=== PATIENT | male | born 1995 | race Two or more races ===

== ENCOUNTER 2019-01-03 19:58 | Inpatient (IN) | payer MEDICAID ==
[~2019-01-03] VITALS: Ht 182.9 cm; Wt 70.1 kg
--- NOTE | 2019-01-03 20:00 | Emergency Room Report ---
History of Present Illness General Chief Complaint: Overdose Present Illness HPI 23-year-old male Nestor Jade, presents with AMS, patient was seen running around the street, he was given Versed per EMS, patient is refusing to answer questions. Patient has no complaints at this time and will not give his name. Patient did endorse using illegal substances Allergies: Coded Allergies: UNABLE TO ASSESS (Unverified , 01/03/19) Patient History Limited by: medical condition - Patient currently intoxicated by some drug Past Medical History: see triage record Social History: Reports: drug use Reviewed Nursing Documentation: PMH: Agreed; PSxH: Agreed Review of Systems All Other Systems: limited - Altered mental status Physical Exam Vital Signs Date Time Temp Pulse Resp B/P (MAP) Pulse Ox O2 Delivery O2 Flow Rate FiO2 01/03/19 19:52 85 16 157/94 (115) 95 Room Air Sp02 EP Interpretation: reviewed, normal General Appearance: no apparent distress, non-toxic Head: normocephalic, atraumatic Eyes: bilateral eye PERRL, bilateral eye EOMI ENT: uvula midline, moist mucus membranes Neck: supple, thyroid normal, supple/symm/no masses Respiratory: lungs clear, no respiratory distress, no retraction, no accessory muscle use Cardiovascular #1: normal peripheral pulses, regular rate, rhythm, no edema, no gallop, no murmur Gastrointestinal: non tender, soft, no guarding, no rebound Musculoskeletal: normal inspection Neurologic: other - Sleeping comfortably in bed Psychiatric: mood/affect normal Skin: no rash, warm/dry Medical Decision Making Diagnostic Impression: Primary Impression: Drug overdose ER Course 23-year-old male presents with acute drug intoxication, unknown substance, patient is uncooperative at this moment Patient was transitioned to Dr. Turcios 9:21pm Laboratory Tests Test 01/03/19 20:10 White Blood Count 7.2 K/UL (4.8-10.8) Red Blood Count 4.27 M/UL (4.70-6.10) L Hemoglobin 12.6 G/DL (14.2-18.0) L Hematocrit 36.7 % (42.0-52.0) L Mean Corpuscular Volume 86 FL (80-99) Mean Corpuscular Hemoglobin 29.5 PG (27.0-31.0) Mean Corpuscular Hemoglobin Concent 34.3 G/DL (32.0-36.0) Red Cell Distribution Width 11.6 % (11.6-14.8) Platelet Count 219 K/UL (150-450) Mean Platelet Volume 6.1 FL (6.5-10.1) L Neutrophils (%) (Auto) 67.7 % (45.0-75.0) Lymphocytes (%) (Auto) 21.9 % (20.0-45.0) Monocytes (%) (Auto) 8.3 % (1.0-10.0) Eosinophils (%) (Auto) 0.8 % (0.0-3.0) Basophils (%) (Auto) 1.2 % (0.0-2.0) Sodium Level 144 MMOL/L (136-145) Potassium Level 3.1 MMOL/L (3.5-5.1) L Chloride Level 107 MMOL/L (98-107) Carbon Dioxide Level 27 MMOL/L (21-32) Anion Gap 10 mmol/L (5-15) Blood Urea Nitrogen 20 mg/dL (7-18) H Creatinine 1.2 MG/DL (0.55-1.30) Estimate Glomerular Filtration Rate > 60 mL/min (>60) Glucose Level 155 MG/DL (74-106) H Calcium Level 9.0 MG/DL (8.5-10.1) Total Bilirubin 1.2 MG/DL (0.2-1.0) H Direct Bilirubin 0.4 MG/DL (0.0-0.3) H Aspartate Amino Transferase (AST) 236 U/L (15-37) H Alanine Aminotransferase (ALT) 357 U/L (12-78) H Alkaline Phosphatase 103 U/L (46-116) Total Creatine Kinase 936 U/L (26-308) H Total Protein 6.6 G/DL (6.4-8.2) Albumin 3.6 G/DL (3.4-5.0) Globulin 3.0 g/dL Albumin/Globulin Ratio 1.2 (1.0-2.7) Salicylates Level 0.2 ug/mL (2.8-20) L Acetaminophen Level < 2 MCG/ML (10-30) L Serum Alcohol < 3 mg/dL EKG Diagnostic Results EKG Time: 20:01 EP Interpretation: NSR, rate 84, QTc 491, no acute ST elevations, normal axis Rate: normal Rhythm: NSR ST Segments: no acute changes Chest X-Ray Diagnostic Results Chest X-Ray Diagnostic Results : Chest X-Ray Ordered: Yes # of Views/Limited/Complete: 1 View Last Vital Signs Date Time Temp Pulse Resp B/P (MAP) Pulse Ox O2 Delivery O2 Flow Rate FiO2 01/03/19 19:52 85 16 157/94 (115) 95 Room Air Condition: Stable Signed Out To: Sanjeev Rubio M.D. Jan 03, 2019 20:00
[2019-01-03 20:15] VITALS: BP 145/87
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
[2019-01-03 20:37] LABS: BASOPHILS % (AUTO) 1.2 % (0.0-2.0); EOSINOPHILS % (AUTO) 0.8 % (0.0-3.0); HEMATOCRIT 36.7 % (42.0-52.0); HEMOGLOBIN 12.6 G/DL (14.2-18.0); LYMPHOCYTES % (AUTO) 21.9 % (20.0-45.0); MEAN CORPUSCULAR VOLUME 86 FL (80-99); MONOCYTES % (AUTO) 8.3 % (1.0-10.0); NEUTROPHILS % (AUTO) 67.7 % (45.0-75.0); PLATELET COUNT 219 K/UL (150-450); RED BLOOD COUNT 4.27 M/UL (4.70-6.10); RED CELL DISTRIBUTION WIDTH 11.6 % (11.6-14.8); WHITE BLOOD COUNT 7.2 K/UL (4.8-10.8)
[2019-01-03 20:56] LABS: ANION GAP 10 mmol/L (5-15); BLOOD UREA NITROGEN 20 mg/dL (7-18); CARBON DIOXIDE 27 MMOL/L (21-32); CHLORIDE 107 MMOL/L (98-107); CREATININE 1.2 MG/DL (0.55-1.30); POTASSIUM 3.1 MMOL/L (3.5-5.1); SODIUM 144 MMOL/L (136-145)
[2019-01-03 21:00] LABS: ALANINE AMINOTRANSFERASE 357 U/L (12-78); ALBUMIN 3.6 G/DL (3.4-5.0); ALBUMIN/GLOBULIN RATIO 1.2 (1.0-2.7); ALKALINE PHOSPHATASE 103 U/L (46-116); ASPARTATE AMINO TRANSFERASE 236 U/L (15-37); BILIRUBIN,DIRECT 0.4 MG/DL (0.0-0.3); BILIRUBIN,TOTAL 1.2 MG/DL (0.2-1.0); CREATINE KINASE 936 U/L (26-308)
--- NOTE | 2019-01-03 21:25 | NUR ---
ED Nurse Note: [place] and juice provided.
[2019-01-03] MEDS ORDERED: LORazepam Inj 2mg/ml 1ml IV ONE (21:30)
[2019-01-03 21:51] LABS: APPEARANCE,URINE SLIGHTLY CLOUDY; BILIRUBIN, URINE NEGATIVE (NEGATIVE); COLOR,URINE BROWN; GLUCOSE, URINE (UA) NEGATIVE (NEGATIVE); KETONES,URINE 1+ (NEGATIVE); LEUKOCYTE ESTERASE ,URINE 1+ (NEGATIVE); NITRITE,URINE NEGATIVE (NEGATIVE); PH,URINE 5 (4.5-8.0); PROTEIN,URINE 1+ (NEGATIVE); UROBILINOGEN,URINE 8 MG/DL (0.0-1.0)
[2019-01-03 22:15] VITALS: BP 145/87
--- NOTE | 2019-01-03 22:40 | NUR ---
ED Nurse Note: [place] and juice provided.
--- NOTE | 2019-01-04 00:05 | NUR ---
ED Nurse Note: Patient was medicated, sleeping, VSS at this time, no acute disstress noticed.
[2019-01-04 00:15] VITALS: BP 140/80
[2019-01-04] MEDS ORDERED: ZYPREXA5 MG ORAL (02:16)
[2019-01-04 02:50] VITALS: BP 134/84
--- NOTE | 2019-01-04 02:50 | NUR ---
ER Nurse Note: Pt asleep, no signs of distress. Denies pain, no SOB, no n/v. Pt calm, cooperative. Chest rise and fall noted. Pending SW in AM. All safety measures met; will continue to montior.
[2019-01-04 04:35] VITALS: BP 119/70
[2019-01-04 06:58] VITALS: BP 122/72
--- NOTE | 2019-01-04 07:06 | NUR ---
ER Nurse Note: Endorsed to ALONSO Anderson for continuity of care.
--- NOTE | 2019-01-04 07:07 | NUR ---
ED Nurse Note: Received patient from Claudia GUPTA. patient is resting comfortably in bed.
--- NOTE | 2019-01-04 08:10 | NUR ---
ED Nurse Note: breakfast provided to the patient. Annabel Document Review Specialist by the bedside.
--- NOTE | 2019-01-04 08:36 | Diagnostic Imaging Report ---
Indications: Altered mental status Technique: Spiral acquisitions obtained through the brain. Angled axial and coronal 5 x 5 mm slices were reconstructed. Total dose length product 1446.08 mGycm. CTDI vol(s) 70.38 mGy. Dose reduction achieved using automated exposure control Comparison: None. Findings: No acute intracranial hemorrhage or edema, mass effect, nor midline shift. Normal hairston-white differentiation. Normal-sized ventricles and extra-axial CSF spaces. Visualized orbits and sinuses are unremarkable. The mastoids are clear. The calvarium is intact Impression: Negative The CT scanner at [facility] is accredited by the [employer] and the scans are performed using protocols designed to limit radiation exposure to as low as reasonably achievable to attain images of sufficient resolution adequate for diagnostic evaluation.
[2019-01-04] MEDS: Heparin 5000 units/ml inj SUBQ SCH ×2 (09:00→20:49)
--- NOTE | 2019-01-04 09:09 | NUR ---
ED Nurse Note: orders from Dr. Mcleod not carried, patient is not on the floor, pt is in ED
--- NOTE | 2019-01-04 09:30 | NUR ---
ED Nurse Note: patient provided with additional sandwich, 2 juices, 1 pitcher of ice water as requested per patient
--- NOTE | 2019-01-04 10:20 | Diagnostic Imaging Report ---
Indication: Cough Technique: One view of the chest Comparison: none Findings: Lungs and pleural spaces are clear. Heart size is normal Impression: No acute process
--- NOTE | 2019-01-04 10:49 | NUR ---
ED Nurse Note: PATIENT REFUSE TO ANSWER QUESTIONS STATES HE WAS ASKED ALL THE QUESTIONS YESTERDAY HE DOES NOT THINK IT HAS TO BE REPEATED AGAIN
--- NOTE | 2019-01-04 10:56 | NUR ---
ED Nurse Note: blood drawn and sent to lab
--- NOTE | 2019-01-04 11:11 | NUR ---
ED Nurse Note: patient took out his IV. patient refused to have another IV at this time.
[2019-01-04 11:19] LABS: BASOPHILS % (AUTO) 1.5 % (0.0-2.0); EOSINOPHILS % (AUTO) 2.1 % (0.0-3.0); HEMOGLOBIN 12.2 G/DL (14.2-18.0); LYMPHOCYTES % (AUTO) 26.3 % (20.0-45.0); MEAN CORPUSCULAR VOLUME 88 FL (80-99); MONOCYTES % (AUTO) 10.8 % (1.0-10.0); NEUTROPHILS % (AUTO) 59.3 % (45.0-75.0); PLATELET COUNT 169 K/UL (150-450); RED BLOOD COUNT 4.08 M/UL (4.70-6.10); RED CELL DISTRIBUTION WIDTH 12.1 % (11.6-14.8); WHITE BLOOD COUNT 4.7 K/UL (4.8-10.8)
[2019-01-04 11:30] LABS: ANION GAP 7 mmol/L (5-15); BLOOD UREA NITROGEN 17 mg/dL (7-18); CALCIUM 8.7 MG/DL (8.5-10.1); CARBON DIOXIDE 30 MMOL/L (21-32); CHLORIDE 106 MMOL/L (98-107); POTASSIUM 3.7 MMOL/L (3.5-5.1); SODIUM 143 MMOL/L (136-145)
--- NOTE | 2019-01-04 11:44 | NUR ---
ED Nurse Note: PROVIDED LUNCH TRAY. PATIEN TOLERATING ORAL INTAKE WITHOUT N/V.
[2019-01-04 11:46] LABS: ALANINE AMINOTRANSFERASE 328 U/L (12-78); ALBUMIN 3.1 G/DL (3.4-5.0); ALBUMIN/GLOBULIN RATIO 1.1 (1.0-2.7); ALKALINE PHOSPHATASE 100 U/L (46-116); ASPARTATE AMINO TRANSFERASE 235 U/L (15-37); BILIRUBIN,TOTAL 1.1 MG/DL (0.2-1.0); CREATINE KINASE 470 U/L (26-308)
[2019-01-04 11:50] LABS: BILIRUBIN,DIRECT 0.4 MG/DL (0.0-0.3)
--- NOTE | 2019-01-04 12:30 | NUR ---
ED Nurse Note: admission hs been cancelled. per social reyes she is going to place her in correction
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
--- NOTE | 2019-01-04 13:55 | NUR ---
UNABLE TO DISCHARGE PATIENT DUE TO PATIENT DO NOT WANT TO BE DISCHARGED TO THE STREET WANTS TO STAY HERE IN THE HOSPITAL. DR MCINTYRE NOTIFIED ADMIT TO HOSPITAL TO DR PARADA
--- NOTE | 2019-01-04 14:06 | NUR ---
ED Nurse Note: patient transferred to 4E with [employer] [facility]. Report given to NELLY GUPTA. patient transferred with packet and with his prescribed medication olanzpine.
--- NOTE | 2019-01-04 14:16 | NUR ---
Social Service Note SW went to speak with patient regarding custodial placement. Primary nurse informed SW that patient will be admitted. Patient will require psych consult. Patient continues to show aggressive behavior.
[2019-01-04] MEDS ORDERED: Haloperidol Lactate 5 MG in D5W 55 ML IVPB PRN (14:30)
[2019-01-04] MEDS: LORazepam Inj 2mg/ml 1ml IV PRN ×3 (14:32→18:52)
--- NOTE | 2019-01-04 14:50 | NUR ---
Social Service Note SW received a return call from [facility] [phone]. Patient was assessed in 2012 and case was closed Mar 18 2013 as patient didn't have a qualifying diagnosis for services. Patient is NOT autistic. MASON spoke with Terence at [employer] [facility] in center [phone]. Per Terence patient utilizes this program often and is able to return at anytime. Terence will also follow up with Cassius for additional services.
[2019-01-04] MEDS ORDERED: Haloperidol 5mg/ml Inj IM PRN ×2 (15:00)
[2019-01-04] MEDS: chlordiazePOXIDE 25mg Cap ORAL PRN (18:03)
--- NOTE | 2019-01-04 19:17 | NUR ---
NURSE NOTES: Pt received in bed asleep, report given that pt can be combative and has an order for ativan, IV intact and saline locked, bed in lowest position, will continue to monitor.
--- NOTE | 2019-01-04 19:33 | NUR ---
HAND-OFF: Report given to Nandini GUPTA.
[2019-01-04 20:00] VITALS: BP 118/71
--- NOTE | 2019-01-04 20:14 | NUR ---
CASE MANAGEMENT: REVIEW 23Y/M BIBA FROM STREET CC: OVERDOSE SI: RHABDOMYOLYSIS . AMS T 97.2 HR 64 RR 16 BP 140/80 SAT 98% ROOM AIR WBC 4.7 AST 235 ALT 328 TOX: AMPHETAMINE + BENZODIAZEPINES + THC + IS: NS IVF BOLUS X1 ATIVAN IV X1 ZYPREXA PO X1 PATIENT ADMITTED TO MED/SURG UNIT 01/04/2019 DCP: PATIENT IS FROM REPORTS HOMELESSNESS
--- NOTE | 2019-01-05 08:05 | NUR ---
HAND-OFF: Report given to ALONSO Lai.
[2019-01-05 10:38] LABS: ANION GAP 5 mmol/L (5-15); BLOOD UREA NITROGEN 13 mg/dL (7-18); CALCIUM 8.3 MG/DL (8.5-10.1); CARBON DIOXIDE 28 MMOL/L (21-32); CHLORIDE 106 MMOL/L (98-107); CREATININE 0.8 MG/DL (0.55-1.30); POTASSIUM 4.2 MMOL/L (3.5-5.1); SODIUM 139 MMOL/L (136-145)
[2019-01-05 10:42] LABS: ALANINE AMINOTRANSFERASE 337 U/L (12-78); ALBUMIN 3.1 G/DL (3.4-5.0); ALBUMIN/GLOBULIN RATIO 1.3 (1.0-2.7); ALKALINE PHOSPHATASE 110 U/L (46-116); ASPARTATE AMINO TRANSFERASE 249 U/L (15-37); BILIRUBIN,TOTAL 0.6 MG/DL (0.2-1.0); CREATINE KINASE 224 U/L (26-308); GAMMA GLUTAMYL TRANSPEPTIDASE 150 U/L (5-85); PHOSPHORUS 2.8 MG/DL (2.5-4.9)
[2019-01-05 10:44] LABS: BASOPHILS % (AUTO) 0.8 % (0.0-2.0); EOSINOPHILS % (AUTO) 1.2 % (0.0-3.0); HEMATOCRIT 37.9 % (42.0-52.0); HEMOGLOBIN 12.6 G/DL (14.2-18.0); LYMPHOCYTES % (AUTO) 17.2 % (20.0-45.0); MEAN CORPUSCULAR VOLUME 89 FL (80-99); MONOCYTES % (AUTO) 8.5 % (1.0-10.0); NEUTROPHILS % (AUTO) 72.4 % (45.0-75.0); PLATELET COUNT 152 K/UL (150-450); RED BLOOD COUNT 4.27 M/UL (4.70-6.10); RED CELL DISTRIBUTION WIDTH 12.3 % (11.6-14.8); WHITE BLOOD COUNT 6.1 K/UL (4.8-10.8)
[2019-01-05] MEDS: Heparin 5000 units/ml inj SUBQ SCH ×2 (11:10→20:52)
--- NOTE | 2019-01-05 11:50 | NUR ---
NURSE NOTES: patient is very frequently asking for food and juices. Right after pt have had a sandwich, he asked some more. Nurse left message at dietary. Pt became angry he didn't have the food right away, and took off his IV access, no bleeding after he compressed site.
--- NOTE | 2019-01-05 13:15 | History and Physical Report ---
DATE OF ADMISSION: 01/04/2019 DATE AND TIME SEEN: 01/05/2019 at 12 noon. CONSULTANTS: 1. Shabbir Mcleod M.D. 2. Kunal Webster M.D. 3. Edmundo Nava M.D. CHIEF COMPLAINT: Rhabdomyolysis, psych history, and methamphetamine abuse. BRIEF HISTORY: This is a 23-year-old homeless man presents to [place] ER, slightly lethargic, confused, admitted to medical floor for above-mentioned diagnosis. Currently sitting on bed, calm, slightly confused. No complaint. REVIEW OF SYSTEMS: No chest pain. No shortness of breath. No nausea, vomiting, or diarrhea. PAST MEDICAL HISTORY: Include ADHD, bipolar. PAST SURGICAL HISTORY: None. MEDICATIONS: Include Haldol, quetiapine, heparin, Zofran, lorazepam, and zolpidem. ALLERGIES: Denies. SOCIAL HISTORY: Positive smoking. Positive alcohol. Positive marijuana use. PHYSICAL EXAMINATION: GENERAL: Calm in bed, oriented x2, in no acute distress. VITAL SIGNS: Temperature is 98 degrees, pulse 77, respirations 20, blood pressure 118/71. CARDIOVASCULAR: No murmur. LUNGS: Distant and clear. ABDOMEN: Positive bowel sounds. Nontender. Nondistended. EXTREMITIES: Show no cyanosis or edema. NEUROLOGIC: The patient moves all extremities slightly weak. LABORATORY AND DIAGNOSTIC STUDIES: Labs at this time show hemoglobin 12.6, otherwise CBC is normal. BMP show calcium . PTT is 150. AST 249, ALT 337. Albumin 3.1 and 1+ leukocyte esterase. Urine tox is positive for amphetamine, benzo, and marijuana. ASSESSMENT: 1. Rhabdomyolysis. 2. UTI. 3. Methamphetamine use. 4. Psych history. 5. Anemia. 6. Malnutrition. PLAN: 1. PT and dietary evaluation. 2. Antibiotics per Infectious Disease. 3. Detox, IV fluids. 4. Psychiatry treatment. Guy Garcia D.O. DR: GISSELLE JOB#: [id number] CC:
--- NOTE | 2019-01-05 15:43 | Consultation ---
Consult Note Consult Note asked to eval by Dr Garcia- 23-year-old male Nestor Jade, presents with AMS, patient was seen running around the street, he was given Versed per EMS, patient is refusing to answer questions. Patient has no complaints at this time and will not give his name. Patient did endorse using illegal substances Allergies: Coded Allergies: UNABLE TO ASSESS (Unverified , 01/03/19) Assessment/Plan 1. Rhabdomyolysis. 2. UTI. 3. Methamphetamine use. 4. Psych history. 5. Anemia. 6. Malnutrition. 7. Elevated LFTs Per orders Uncooparative Kunal Webster MD Jan 05, 2019 15:43
[2019-01-05 16:00] VITALS: BP 132/78
--- NOTE | 2019-01-05 17:20 | NUR ---
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 AMS VS: BP 132/78, P 90, T 98.7, RR 18, SpO2 99 RBC 4.27, H&H 12.6/37.9, K 3.1, BUN 20 IS:SEROQUEL 50mg PEPCID 20mg MED/SURG STATUS
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
[2019-01-05] MEDS: Docusate 100mg cap ORAL SCH (18:00)
[2019-01-05] MEDS: Magnesium Oxide 400mg tab ORAL SCH (18:00)
--- NOTE | 2019-01-05 19:34 | NUR ---
HAND-OFF: Report given to ALONSO Delatorre.
--- NOTE | 2019-01-05 19:51 | NUR ---
NURSE NOTES: Pt received in his room, c/o that he is tired of crackers and juice and that is why he just sleeps, I will get the patient a sandwhich and at the moment he is calm in bed, no c/o pain or signs of distress at the moment, will continue to monitor.
[2019-01-05 20:00] VITALS: BP 108/61
--- NOTE | 2019-01-05 22:07 | Consultation ---
History of Present Illness General Date patient seen: Jan 05, 2019 Chief Complaint: Overdose Present Illness HPI 23y/o M with hx of ADHD, bipolar disorder is brought to ED on 01/03 with AMS; was seen running around the street. Upon admission fount ot have rhabdomyolysis. UDS + for methamphetamines. Denied CP, SOB, n/v/d Allergies: Coded Allergies: UNABLE TO ASSESS (Unverified , 01/03/19) Medication History Scheduled Olanzapine* (Zyprexa*), 5 MG ORAL DAILY Patient History Healthcare decision maker Resuscitation status Full Code Advanced Directive on File Patient History Narrative Pmhx: as above Shx: Positive smoking. Positive alcohol. Positive marijuana use. Fhx: non contributory Review of Systems All Other Systems: negative except mentioned in HPI Physical Exam Physical Exam Narrative GENERAL: Calm in bed, oriented x2, in no acute distress. CARDIOVASCULAR: No murmur. LUNGS: Distant and clear. ABDOMEN: Positive bowel sounds. Nontender. Nondistended. EXTREMITIES: Show no cyanosis or edema. NEUROLOGIC: The patient moves all extremities slightly weak. Last 24 Hour Vital Signs Date Time Temp Pulse Resp B/P (MAP) Pulse Ox O2 Delivery O2 Flow Rate FiO2 01/05/19 21:00 Room Air 01/05/19 16:00 98.7 90 18 132/78 (96) 99 01/05/19 09:00 Room Air Intake and Output 01/04/19 01/05/19 19:00 07:00 Intake Total 1500 ml Balance 1500 ml Intake Oral 1500 ml # Voids 1 Laboratory Tests Test 01/05/19 10:17 White Blood Count 6.1 K/UL (4.8-10.8) Red Blood Count 4.27 M/UL (4.70-6.10) L Hemoglobin 12.6 G/DL (14.2-18.0) L Hematocrit 37.9 % (42.0-52.0) L Mean Corpuscular Volume 89 FL (80-99) Mean Corpuscular Hemoglobin 29.4 PG (27.0-31.0) Mean Corpuscular Hemoglobin Concent 33.1 G/DL (32.0-36.0) Red Cell Distribution Width 12.3 % (11.6-14.8) Platelet Count 152 K/UL (150-450) Mean Platelet Volume 6.2 FL (6.5-10.1) L Neutrophils (%) (Auto) 72.4 % (45.0-75.0) Lymphocytes (%) (Auto) 17.2 % (20.0-45.0) L Monocytes (%) (Auto) 8.5 % (1.0-10.0) Eosinophils (%) (Auto) 1.2 % (0.0-3.0) Basophils (%) (Auto) 0.8 % (0.0-2.0) Sodium Level 139 MMOL/L (136-145) Potassium Level 4.2 MMOL/L (3.5-5.1) Chloride Level 106 MMOL/L (98-107) Carbon Dioxide Level 28 MMOL/L (21-32) Anion Gap 5 mmol/L (5-15) Blood Urea Nitrogen 13 mg/dL (7-18) Creatinine 0.8 MG/DL (0.55-1.30) Estimat Glomerular Filtration Rate > 60 mL/min (>60) Glucose Level 97 MG/DL (74-106) Uric Acid 5.6 MG/DL (2.6-7.2) Calcium Level 8.3 MG/DL (8.5-10.1) L Phosphorus Level 2.8 MG/DL (2.5-4.9) Magnesium Level 1.7 MG/DL (1.8-2.4) L Total Bilirubin 0.6 MG/DL (0.2-1.0) Gamma Glutamyl Transpeptidase 150 U/L (5-85) H Aspartate Amino Transf (AST/SGOT) 249 U/L (15-37) H Alanine Aminotransferase (ALT/SGPT) 337 U/L (12-78) H Alkaline Phosphatase 110 U/L (46-116) Total Creatine Kinase 224 U/L (26-308) Total Protein 5.5 G/DL (6.4-8.2) L Albumin 3.1 G/DL (3.4-5.0) L Globulin 2.4 g/dL Albumin/Globulin Ratio 1.3 (1.0-2.7) Height (Feet): 6 Height (Inches): 0.00 Weight (Pounds): 150 Medications Current Medications Medications (Trade) Dose Ordered Sig/Kartik Route PRN Reason Start Time Stop Time Status Last Admin Dose Admin Acetaminophen (Tylenol) 650 mg Q4H PRN ORAL fever 01/03/19 23:45 02/02/19 23:44 Chlordiazepoxide (Librium) 25 mg Q6H PRN ORAL Agitation 01/03/19 23:45 01/10/19 23:44 01/04/19 18:03 Dextrose (Dextrose 50%) 25 ml Q30M PRN IV Hypoglycemia 01/03/19 23:45 02/02/19 23:44 Docusate Sodium (Colace) 100 mg THREE TIMES A DAY ORAL 01/05/19 18:00 02/04/19 17:59 Famotidine (Pepcid) 20 mg BID ORAL 01/05/19 18:00 02/04/19 17:59 Haloperidol Lactate (Haldol) 5 mg Q2H PRN IM AGITATION 01/04/19 15:00 02/03/19 14:59 Heparin Sodium (Porcine) (Heparin 5000 units/ml) 5,000 units EVERY 12 HOURS SUBQ 01/04/19 09:00 02/03/19 08:59 01/05/19 20:52 Lorazepam (Ativan 2mg/ml 1ml) 2 mg Q1H PRN IV seizures or agitation 01/03/19 23:45 01/10/19 23:44 01/04/19 18:52 Magnesium Oxide (Mag-Ox 400mg) 400 mg THREE TIMES A DAY ORAL 01/05/19 18:00 02/04/19 17:59 Ondansetron HCl (Zofran) 4 mg Q6H PRN IVP Nausea & Vomiting 01/03/19 23:45 02/02/19 23:44 Quetiapine Fumarate (SEROquel) 50 mg Q12HR ORAL 01/04/19 14:30 02/03/19 14:29 01/05/19 20:51 Zolpidem Tartrate (Ambien) 5 mg HSPRN PRN ORAL Insomnia 01/03/19 23:45 01/10/19 23:44 Assessment/Plan Assessment/Plan: Abx: None Assessment: Acute encephalopathy- no obvious infections process Drug intoxication -UDS + Benzo, methamphetamine, THC -CT head: No acute process Afebrile NO leukocytosis -CXR: No acute process -u/a neg ADHD bipolar disorder Plan: -Continue to monitor off abx -f/u cx -Monitor CBC/CMP, temperatures Thank you for this consultation. Will continue to follow along with you. Discussed with Bridgette Green M.D. Jan 05, 2019 22:07
[2019-01-06 06:18] LABS: BASOPHILS % (AUTO) 1.2 % (0.0-2.0); HEMATOCRIT 37.7 % (42.0-52.0); HEMOGLOBIN 12.3 G/DL (14.2-18.0); LYMPHOCYTES % (AUTO) 29.4 % (20.0-45.0); MEAN CORPUSCULAR VOLUME 90 FL (80-99); MONOCYTES % (AUTO) 10.2 % (1.0-10.0); NEUTROPHILS % (AUTO) 57.3 % (45.0-75.0); PLATELET COUNT 137 K/UL (150-450); RED BLOOD COUNT 4.18 M/UL (4.70-6.10); RED CELL DISTRIBUTION WIDTH 12.8 % (11.6-14.8)
[2019-01-06 07:07] LABS: ANION GAP 6 mmol/L (5-15); BLOOD UREA NITROGEN 15 mg/dL (7-18); CALCIUM 8.3 MG/DL (8.5-10.1); CARBON DIOXIDE 27 MMOL/L (21-32); CHLORIDE 109 MMOL/L (98-107); CREATININE 0.7 MG/DL (0.55-1.30); POTASSIUM 4.1 MMOL/L (3.5-5.1); SODIUM 142 MMOL/L (136-145)
--- NOTE | 2019-01-06 07:39 | NUR ---
HAND-OFF: Report given to ALONSO Green.
--- NOTE | 2019-01-06 07:48 | NUR ---
NURSE NOTES: received report from ALONSO Delatorre. patient in bed. A&Ox4 verbally responsive. no respiratory distress noted. no pain at this time. IV on RAC saline lock intact. Fall risk. bed in the lowest position. call light within reach. no sitter at the bed side. will provide plan of care.
[2019-01-06 08:00] VITALS: BP 123/78
[2019-01-06] MEDS: Docusate 100mg cap ORAL SCH ×3 (08:14→17:21)
[2019-01-06] MEDS: Magnesium Oxide 400mg tab ORAL SCH ×3 (08:14→17:22)
[2019-01-06] MEDS: Heparin 5000 units/ml inj SUBQ SCH ×2 (08:14→20:32)
--- NOTE | 2019-01-06 09:08 | General Progress Note ---
Assessment/Plan Problem List: (1) Malnutrition ICD Codes: E46 - Unspecified protein-calorie malnutrition SNOMED: 76597984 (2) Psychiatric diagnosis ICD Codes: F99 - Mental disorder, not otherwise specified SNOMED: 17961238 (3) Drug overdose ICD Codes: T50.901A - Poisoning by unspecified drugs, medicaments and biological substances, accidental (unintentional), initial encounter SNOMED: 65536302 (4) Anemia ICD Codes: D64.9 - Anemia, unspecified SNOMED: 009518559 (5) UTI (urinary tract infection) ICD Codes: N39.0 - Urinary tract infection, site not specified SNOMED: 48908900 Status: stable, progressing Assessment/Plan: pt diet abx detox cbc bmp am psyc transfer Subjective Constitutional: Reports: weakness Allergies: Coded Allergies: UNABLE TO ASSESS (Unverified , 01/03/19) All Systems: reviewed and negative except above Subjective calm in room Objective Last 24 Hour Vital Signs Date Time Temp Pulse Resp B/P (MAP) Pulse Ox O2 Delivery O2 Flow Rate FiO2 01/06/19 08:00 97.3 72 18 123/78 (93) 98 01/05/19 21:00 Room Air 01/05/19 20:00 97.7 73 18 108/61 (77) 97 01/05/19 16:00 98.7 90 18 132/78 (96) 99 Intake and Output 01/05/19 01/06/19 18:59 06:59 Intake Total 480 ml 1180 ml Balance 480 ml 1180 ml Intake Oral 480 ml 1180 ml Laboratory Tests 01/05/19 10:17: White Blood Count 6.1, Red Blood Count 4.27L, Hemoglobin 12.6L, Hematocrit 37.9L , Mean Corpuscular Volume 89, Mean Corpuscular Hemoglobin 29.4, Mean Corpuscular Hemoglobin Concent 33.1, Red Cell Distribution Width 12.3, Platelet Count 152, Mean Platelet Volume 6.2L, Neutrophils (%) (Auto) 72.4, Lymphocytes ( %) (Auto) 17.2L, Monocytes (%) (Auto) 8.5, Eosinophils (%) (Auto) 1.2, Basophils (%) (Auto) 0.8, Sodium Level 139, Potassium Level 4.2, Chloride Level 106, Carbon Dioxide Level 28, Anion Gap 5, Blood Urea Nitrogen 13, Creatinine 0.8, Estimat Glomerular Filtration Rate > 60, Glucose Level 97, Uric Acid 5.6, Calcium Level 8.3L, Phosphorus Level 2.8, Magnesium Level 1.7L, Total Bilirubin 0.6, Gamma Glutamyl Transpeptidase 150H, Aspartate Amino Transf (AST/SGOT) 249H , Alanine Aminotransferase (ALT/SGPT) 337H, Alkaline Phosphatase 110, Total Creatine Kinase 224, Total Protein 5.5L, Albumin 3.1L, Globulin 2.4, Albumin/ Globulin Ratio 1.3 01/06/19 05:45: White Blood Count 4.0L, Red Blood Count 4.18L, Hemoglobin 12.3L, Hematocrit 37.7L, Mean Corpuscular Volume 90, Mean Corpuscular Hemoglobin 29.5, Mean Corpuscular Hemoglobin Concent 32.7, Red Cell Distribution Width 12.8, Platelet Count 137L, Mean Platelet Volume 6.7, Neutrophils (%) (Auto) 57.3, Lymphocytes ( %) (Auto) 29.4, Monocytes (%) (Auto) 10.2H, Eosinophils (%) (Auto) 2.0, Basophils (%) (Auto) 1.2, Sodium Level 142, Potassium Level 4.1, Chloride Level 109H, Carbon Dioxide Level 27, Anion Gap 6, Blood Urea Nitrogen 15, Creatinine 0.7, Estimat Glomerular Filtration Rate > 60, Glucose Level 95, Calcium Level 8.3L Height (Feet): 6 Height (Inches): 0.00 Weight (Pounds): 150 General Appearance: lethargic EENT: normal ENT inspection Neck: normal alignment Cardiovascular: normal peripheral pulses, normal rate, regular rhythm Respiratory/Chest: chest wall non-tender, lungs clear, normal breath sounds Abdomen: normal bowel sounds, non tender, soft Extremities: normal inspection Edema: no edema noted Arm (L), no edema noted Arm (R), no edema noted Leg (L), no edema noted Leg (R), no edema noted Pedal (L), no edema noted Pedal (R), no edema noted Generalized Neurologic: motor weakness Skin: normal pigmentation, warm/dry Guy Garcia DO Jan 06, 2019 09:08
[2019-01-06 12:00] VITALS: BP 124/68
[2019-01-06] MEDS ORDERED: DiphenhydrAMINE 50mg/ml Inj IM SCH (14:00)
[2019-01-06] MEDS ORDERED: Haloperidol 5mg/ml Inj IM SCH (14:00)
[2019-01-06] MEDS ORDERED: LORazepam Inj 2mg/ml 1ml IM SCH (14:00)
[2019-01-06] MEDS ORDERED: DiphenhydrAMINE 50mg/ml Inj IM PRN (15:15)
[2019-01-06] MEDS ORDERED: LORazepam Inj 2mg/ml 1ml IM PRN (15:30)
[2019-01-06] MEDS ORDERED: Haloperidol 5mg/ml Inj IM PRN (15:30)
[2019-01-06 16:00] VITALS: BP 121/70
--- NOTE | 2019-01-06 16:34 | NUR ---
P.T NOTE: P.T evaluation completed and treatment initiated. Pt is alert, O x 3 , cooperative. Pt denied c/o pain however reports c/o generalized weakness and dizziness compromising his balance and safety in functional activities. Vitals taken and were stable. Pt currently at high fall risk needed assistance for OOB activities. Skilled P.T service is warranted to improve strength and balance to increase mobility independence and safety during stay for return to [facility]. Addendum: 01/06/19 at 1635 by DAJUAN JACK PT Amended: Links added.
--- NOTE | 2019-01-06 17:19 | Nephrology Progress Note ---
Assessment/Plan Problem List: (1) UTI (urinary tract infection) (2) Drug overdose (3) Anemia (4) Psychiatric diagnosis (5) Elevated LFTs Assessment 1. Rhabdomyolysis. 2. UTI. 3. Methamphetamine use. 4. Psych history. 5. Anemia. 6. Malnutrition. 7. Elevated LFTs Plan Per orders Uncooparative Subjective ROS Limited/Unobtainable: No Objective Objective Last 24 Hour Vital Signs Date Time Temp Pulse Resp B/P (MAP) Pulse Ox O2 Delivery O2 Flow Rate FiO2 01/06/19 12:00 97.5 71 18 124/68 (86) 98 01/06/19 09:00 Room Air 01/06/19 08:00 97.3 72 18 123/78 (93) 98 01/05/19 21:00 Room Air 01/05/19 20:00 97.7 73 18 108/61 (77) 97 Intake and Output 01/05/19 01/06/19 19:00 07:00 Intake Total 480 ml 1180 ml Balance 480 ml 1180 ml Intake Oral 480 ml 1180 ml Laboratory Tests 01/06/19 05:45: White Blood Count 4.0L, Red Blood Count 4.18L, Hemoglobin 12.3L, Hematocrit 37.7L, Mean Corpuscular Volume 90, Mean Corpuscular Hemoglobin 29.5, Mean Corpuscular Hemoglobin Concent 32.7, Red Cell Distribution Width 12.8, Platelet Count 137L, Mean Platelet Volume 6.7, Neutrophils (%) (Auto) 57.3, Lymphocytes ( %) (Auto) 29.4, Monocytes (%) (Auto) 10.2H, Eosinophils (%) (Auto) 2.0, Basophils (%) (Auto) 1.2, Sodium Level 142, Potassium Level 4.1, Chloride Level 109H, Carbon Dioxide Level 27, Anion Gap 6, Blood Urea Nitrogen 15, Creatinine 0.7, Estimat Glomerular Filtration Rate > 60, Glucose Level 95, Calcium Level 8.3L Height (Feet): 6 Height (Inches): 0.00 Weight (Pounds): 150 General Appearance: no apparent distress Objective no change Kunal Webster MD Jan 06, 2019 17:19
--- NOTE | 2019-01-06 17:23 | NUR ---
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 AMS VS: BP 124/68, P 72, T 97.3, RR 18, SpO2 99 WBC 4.0, RBC 4.18, H&H 12.3/37.7, AST 230, ALT 333 IS:SEROQUEL 50mg PEPCID 20mg MED/SURG STATUS
[2019-01-06 17:44] LABS: ALANINE AMINOTRANSFERASE 333 U/L (12-78); ALBUMIN 2.9 G/DL (3.4-5.0); ALKALINE PHOSPHATASE 113 U/L (46-116); ASPARTATE AMINO TRANSFERASE 230 U/L (15-37); BILIRUBIN,DIRECT 0.1 MG/DL (0.0-0.3); BILIRUBIN,TOTAL 0.4 MG/DL (0.2-1.0); CREATINE KINASE 116 U/L (26-308); GAMMA GLUTAMYL TRANSPEPTIDASE 152 U/L (5-85)
--- NOTE | 2019-01-06 19:17 | NUR ---
HAND-OFF: Report given to ALNOSO lyle.
--- NOTE | 2019-01-06 19:25 | NUR ---
NURSE NOTES: Pt received in bed asleep, endorsed that sitter was d/cd, will continue to monitor pt and his behavior, bed in lowest position.
[2019-01-06 20:00] VITALS: BP 126/72
[2019-01-07] VITALS: BP 117/63
--- NOTE | 2019-01-07 06:38 | NUR ---
NURSE NOTES: pt refused labs this morning and teenage babysitter stated someone will come up later to retry. I will endorse to AM nurse.
--- NOTE | 2019-01-07 07:32 | NUR ---
HAND-OFF: Report given to ALONSO JONES.
[2019-01-07 08:00] VITALS: BP 140/90
--- NOTE | 2019-01-07 08:10 | NUR ---
NURSE NOTES: received pt in bed, asleep, no sign of pain or discomfort noted. RAC IV access in place. Bed locked at the lowest position possivle, call light within easy reach, siderails up x2. Will continue to monitor pt and follow up with the plan of care.
[2019-01-07 08:23] LABS: EOSINOPHILS % (AUTO) 2.9 % (0.0-3.0); HEMATOCRIT 37.8 % (42.0-52.0); HEMOGLOBIN 12.4 G/DL (14.2-18.0); LYMPHOCYTES % (AUTO) 28.2 % (20.0-45.0); MEAN CORPUSCULAR VOLUME 90 FL (80-99); MONOCYTES % (AUTO) 8.2 % (1.0-10.0); NEUTROPHILS % (AUTO) 59.6 % (45.0-75.0); PLATELET COUNT 143 K/UL (150-450); RED BLOOD COUNT 4.19 M/UL (4.70-6.10); RED CELL DISTRIBUTION WIDTH 12.7 % (11.6-14.8); WHITE BLOOD COUNT 3.8 K/UL (4.8-10.8)
[2019-01-07 08:30] LABS: ANION GAP 1 mmol/L (5-15); BLOOD UREA NITROGEN 11 mg/dL (7-18); CALCIUM 8.6 MG/DL (8.5-10.1); CARBON DIOXIDE 30 MMOL/L (21-32); CHLORIDE 107 MMOL/L (98-107); CREATININE 0.7 MG/DL (0.55-1.30); POTASSIUM 4.5 MMOL/L (3.5-5.1); SODIUM 137 MMOL/L (136-145)
[2019-01-07] MEDS: Heparin 5000 units/ml inj SUBQ SCH ×2 (09:00→20:27)
[2019-01-07] MEDS: Magnesium Oxide 400mg tab ORAL SCH ×3 (09:00→18:31)
[2019-01-07] MEDS: Docusate 100mg cap ORAL SCH ×3 (09:00→18:31)
--- NOTE | 2019-01-07 09:18 | General Progress Note ---
Assessment/Plan Problem List: (1) Malnutrition ICD Codes: E46 - Unspecified protein-calorie malnutrition SNOMED: 94881385 (2) Psychiatric diagnosis ICD Codes: F99 - Mental disorder, not otherwise specified SNOMED: 05135282 (3) Drug overdose ICD Codes: T50.901A - Poisoning by unspecified drugs, medicaments and biological substances, accidental (unintentional), initial encounter SNOMED: 11729255 (4) Anemia ICD Codes: D64.9 - Anemia, unspecified SNOMED: 401062102 (5) UTI (urinary tract infection) ICD Codes: N39.0 - Urinary tract infection, site not specified SNOMED: 84237038 Status: stable, progressing Assessment/Plan: pt diet abx detox cbc bmp am psyc transfer Subjective Constitutional: Reports: weakness Allergies: Coded Allergies: UNABLE TO ASSESS (Unverified , 01/03/19) All Systems: reviewed and negative except above Subjective calm in room Objective Last 24 Hour Vital Signs Date Time Temp Pulse Resp B/P (MAP) Pulse Ox O2 Delivery O2 Flow Rate FiO2 01/07/19 08:00 97.8 89 18 140/90 (107) 100 01/07/19 00:00 97.3 84 19 117/63 (81) 99 01/06/19 21:00 Room Air 01/06/19 20:00 97.9 68 19 126/72 (90) 99 01/06/19 16:00 97.5 72 18 121/70 (87) 99 01/06/19 12:00 97.5 71 18 124/68 (86) 98 Intake and Output 01/06/19 01/07/19 19:00 07:00 Intake Total 720 ml 940 ml Balance 720 ml 940 ml Intake Oral 720 ml 940 ml # Voids 4 Laboratory Tests 01/07/19 08:00: White Blood Count 3.8L, Red Blood Count 4.19L, Hemoglobin 12.4L, Hematocrit 37.8L, Mean Corpuscular Volume 90, Mean Corpuscular Hemoglobin 29.6, Mean Corpuscular Hemoglobin Concent 32.8, Red Cell Distribution Width 12.7, Platelet Count 143L, Mean Platelet Volume 6.7, Neutrophils (%) (Auto) 59.6, Lymphocytes ( %) (Auto) 28.2, Monocytes (%) (Auto) 8.2, Eosinophils (%) (Auto) 2.9, Basophils (%) (Auto) 1.0, Sodium Level 137, Potassium Level 4.5, Chloride Level 107, Carbon Dioxide Level 30, Anion Gap 1L, Blood Urea Nitrogen 11, Creatinine 0.7, Estimat Glomerular Filtration Rate > 60, Glucose Level 117H, Calcium Level 8.6 Height (Feet): 6 Height (Inches): 0.00 Weight (Pounds): 150 General Appearance: lethargic EENT: normal ENT inspection Neck: normal alignment Cardiovascular: normal peripheral pulses, normal rate, regular rhythm Respiratory/Chest: chest wall non-tender, lungs clear, normal breath sounds Abdomen: normal bowel sounds, non tender, soft Extremities: normal inspection Edema: no edema noted Arm (L), no edema noted Arm (R), no edema noted Leg (L), no edema noted Leg (R), no edema noted Pedal (L), no edema noted Pedal (R), no edema noted Generalized Neurologic: motor weakness Skin: normal pigmentation, warm/dry Guy Garcia DO Jan 07, 2019 09:18
--- NOTE | 2019-01-07 12:44 | Nephrology Progress Note ---
Assessment/Plan Problem List: (1) UTI (urinary tract infection) (2) Drug overdose (3) Anemia (4) Psychiatric diagnosis (5) Elevated LFTs Assessment 1. Rhabdomyolysis. 2. UTI. 3. Methamphetamine use. 4. Psych history. 5. Anemia. 6. Malnutrition. 7. Elevated LFTs Plan Per orders Uncooparative abd KEI monitor LFTs Subjective ROS Limited/Unobtainable: No Constitutional: Reports: malaise Objective Objective Last 24 Hour Vital Signs Date Time Temp Pulse Resp B/P (MAP) Pulse Ox O2 Delivery O2 Flow Rate FiO2 01/07/19 09:00 Room Air 01/07/19 08:00 97.8 89 18 140/90 (107) 100 01/07/19 00:00 97.3 84 19 117/63 (81) 99 01/06/19 21:00 Room Air 01/06/19 20:00 97.9 68 19 126/72 (90) 99 01/06/19 16:00 97.5 72 18 121/70 (87) 99 Intake and Output 01/06/19 01/07/19 19:00 07:00 Intake Total 720 ml 940 ml Balance 720 ml 940 ml Intake Oral 720 ml 940 ml # Voids 4 Laboratory Tests 01/07/19 08:00: White Blood Count 3.8L, Red Blood Count 4.19L, Hemoglobin 12.4L, Hematocrit 37.8L, Mean Corpuscular Volume 90, Mean Corpuscular Hemoglobin 29.6, Mean Corpuscular Hemoglobin Concent 32.8, Red Cell Distribution Width 12.7, Platelet Count 143L, Mean Platelet Volume 6.7, Neutrophils (%) (Auto) 59.6, Lymphocytes ( %) (Auto) 28.2, Monocytes (%) (Auto) 8.2, Eosinophils (%) (Auto) 2.9, Basophils (%) (Auto) 1.0, Sodium Level 137, Potassium Level 4.5, Chloride Level 107, Carbon Dioxide Level 30, Anion Gap 1L, Blood Urea Nitrogen 11, Creatinine 0.7, Estimat Glomerular Filtration Rate > 60, Glucose Level 117H, Calcium Level 8.6 Height (Feet): 6 Height (Inches): 0.00 Weight (Pounds): 150 General Appearance: no apparent distress Objective no change Kunal Webster MD Jan 07, 2019 12:44
--- NOTE | 2019-01-07 13:05 | Infectious Diseases Prog Note ---
Assessment/Plan Assessment/Plan Abx: None Assessment: Acute encephalopathy- no obvious infections process Drug intoxication -UDS + Benzo, methamphetamine, THC -CT head: No acute process Afebrile NO leukocytosis -CXR: No acute process -u/a neg Elevated LFTs- r/o viral hepatitis -Abd US p ADHD bipolar disorder Plan: -Continue to monitor off abx -f/u cx -Monitor CBC/CMP, temperatures Thank you for this consultation. Will continue to follow along with you. Discussed with RN. Subjective Allergies: Coded Allergies: UNABLE TO ASSESS (Unverified , 01/03/19) Subjective afebrile no leukocytosis elevated LFTs Objective Vital Signs Last 24 Hour Vital Signs Date Time Temp Pulse Resp B/P (MAP) Pulse Ox O2 Delivery O2 Flow Rate FiO2 01/07/19 09:00 Room Air 01/07/19 08:00 97.8 89 18 140/90 (107) 100 01/07/19 00:00 97.3 84 19 117/63 (81) 99 01/06/19 21:00 Room Air 01/06/19 20:00 97.9 68 19 126/72 (90) 99 01/06/19 16:00 97.5 72 18 121/70 (87) 99 Height (Feet): 6 Height (Inches): 0.00 Weight (Pounds): 150 Objective GENERAL: Calm in bed, oriented x2, in no acute distress. CARDIOVASCULAR: No murmur. LUNGS: Distant and clear. ABDOMEN: Positive bowel sounds. Nontender. Nondistended. EXTREMITIES: Show no cyanosis or edema. NEUROLOGIC: The patient moves all extremities slightly weak. Laboratory Tests Test 01/07/19 08:00 White Blood Count 3.8 K/UL (4.8-10.8) L Red Blood Count 4.19 M/UL (4.70-6.10) L Hemoglobin 12.4 G/DL (14.2-18.0) L Hematocrit 37.8 % (42.0-52.0) L Mean Corpuscular Volume 90 FL (80-99) Mean Corpuscular Hemoglobin 29.6 PG (27.0-31.0) Mean Corpuscular Hemoglobin Concent 32.8 G/DL (32.0-36.0) Red Cell Distribution Width 12.7 % (11.6-14.8) Platelet Count 143 K/UL (150-450) L Mean Platelet Volume 6.7 FL (6.5-10.1) Neutrophils (%) (Auto) 59.6 % (45.0-75.0) Lymphocytes (%) (Auto) 28.2 % (20.0-45.0) Monocytes (%) (Auto) 8.2 % (1.0-10.0) Eosinophils (%) (Auto) 2.9 % (0.0-3.0) Basophils (%) (Auto) 1.0 % (0.0-2.0) Sodium Level 137 MMOL/L (136-145) Potassium Level 4.5 MMOL/L (3.5-5.1) Chloride Level 107 MMOL/L (98-107) Carbon Dioxide Level 30 MMOL/L (21-32) Anion Gap 1 mmol/L (5-15) L Blood Urea Nitrogen 11 mg/dL (7-18) Creatinine 0.7 MG/DL (0.55-1.30) Estimat Glomerular Filtration Rate > 60 mL/min (>60) Glucose Level 117 MG/DL (74-106) H Calcium Level 8.6 MG/DL (8.5-10.1) Current Medications Medications (Trade) Dose Ordered Sig/Kartik Route PRN Reason Start Time Stop Time Status Last Admin Dose Admin Acetaminophen (Tylenol) 650 mg Q4H PRN ORAL fever 01/03/19 23:45 02/02/19 23:44 Chlordiazepoxide (Librium) 25 mg Q6H PRN ORAL Agitation 01/03/19 23:45 01/10/19 23:44 01/04/19 18:03 Dextrose (Dextrose 50%) 25 ml Q30M PRN IV Hypoglycemia 01/03/19 23:45 02/02/19 23:44 Diphenhydramine HCl (Benadryl) 25 mg ONCE PRN IM agitation 01/06/19 15:15 01/13/19 15:14 Docusate Sodium (Colace) 100 mg THREE TIMES A DAY ORAL 01/05/19 18:00 02/04/19 17:59 01/07/19 12:12 Famotidine (Pepcid) 20 mg BID ORAL 01/05/19 18:00 02/04/19 17:59 01/07/19 12:12 Haloperidol Lactate (Haldol) 5 mg ONCE PRN IM agitation 01/06/19 15:30 01/13/19 15:29 Haloperidol Lactate (Haldol) 5 mg Q2H PRN IM AGITATION 01/04/19 15:00 02/03/19 14:59 Heparin Sodium (Porcine) (Heparin 5000 units/ml) 5,000 units EVERY 12 HOURS SUBQ 01/04/19 09:00 02/03/19 08:59 01/06/19 20:32 Lorazepam (Ativan 2mg/ml 1ml) 2 mg ONCE PRN IM agitation 01/06/19 15:30 01/13/19 15:29 Lorazepam (Ativan 2mg/ml 1ml) 2 mg Q1H PRN IV seizures or agitation 01/03/19 23:45 01/10/19 23:44 01/04/19 18:52 Magnesium Oxide (Mag-Ox 400mg) 400 mg THREE TIMES A DAY ORAL 01/05/19 18:00 02/04/19 17:59 01/07/19 12:11 Ondansetron HCl (Zofran) 4 mg Q6H PRN IVP Nausea & Vomiting 01/03/19 23:45 02/02/19 23:44 Quetiapine Fumarate (SEROquel) 50 mg Q12HR ORAL 01/04/19 14:30 02/03/19 14:29 01/07/19 12:17 Zolpidem Tartrate (Ambien) 5 mg HSPRN PRN ORAL Insomnia 01/03/19 23:45 01/10/19 23:44 Bridgette Ortiz M.D. Jan 07, 2019 13:05
--- NOTE | 2019-01-07 14:31 | Pulmonology Progress Note ---
Assessment/Plan Problems: (1) Acute encephalopathy (2) Delirium (3) Psychiatric diagnosis (4) Rhabdomyolysis Assessment/Plan feeling better ok to dc Subjective ROS Limited/Unobtainable: No Allergies: Coded Allergies: UNABLE TO ASSESS (Unverified , 01/03/19) Objective Last 24 Hour Vital Signs Date Time Temp Pulse Resp B/P (MAP) Pulse Ox O2 Delivery O2 Flow Rate FiO2 01/07/19 09:00 Room Air 01/07/19 08:00 97.8 89 18 140/90 (107) 100 01/07/19 00:00 97.3 84 19 117/63 (81) 99 01/06/19 21:00 Room Air 01/06/19 20:00 97.9 68 19 126/72 (90) 99 01/06/19 16:00 97.5 72 18 121/70 (87) 99 Intake and Output 01/06/19 01/07/19 19:00 07:00 Intake Total 720 ml 940 ml Balance 720 ml 940 ml Intake Oral 720 ml 940 ml # Voids 4 General Appearance: WD/WN HEENT: normocephalic, anicteric, PERRL Respiratory/Chest: chest wall non-tender, lungs clear, normal breath sounds Cardiovascular: normal peripheral pulses, normal rate Abdomen: normal bowel sounds, soft, non tender, no organomegaly Genitourinary: normal external genitalia Extremities: no clubbing Skin: no rash Laboratory Tests 01/07/19 08:00: White Blood Count 3.8L, Red Blood Count 4.19L, Hemoglobin 12.4L, Hematocrit 37.8L, Mean Corpuscular Volume 90, Mean Corpuscular Hemoglobin 29.6, Mean Corpuscular Hemoglobin Concent 32.8, Red Cell Distribution Width 12.7, Platelet Count 143L, Mean Platelet Volume 6.7, Neutrophils (%) (Auto) 59.6, Lymphocytes ( %) (Auto) 28.2, Monocytes (%) (Auto) 8.2, Eosinophils (%) (Auto) 2.9, Basophils (%) (Auto) 1.0, Sodium Level 137, Potassium Level 4.5, Chloride Level 107, Carbon Dioxide Level 30, Anion Gap 1L, Blood Urea Nitrogen 11, Creatinine 0.7, Estimat Glomerular Filtration Rate > 60, Glucose Level 117H, Calcium Level 8.6 Current Medications Medications (Trade) Dose Ordered Sig/Kartik Route PRN Reason Start Time Stop Time Status Last Admin Dose Admin Acetaminophen (Tylenol) 650 mg Q4H PRN ORAL fever 01/03/19 23:45 02/02/19 23:44 Chlordiazepoxide (Librium) 25 mg Q6H PRN ORAL Agitation 01/03/19 23:45 01/10/19 23:44 01/04/19 18:03 Dextrose (Dextrose 50%) 25 ml Q30M PRN IV Hypoglycemia 01/03/19 23:45 02/02/19 23:44 Diphenhydramine HCl (Benadryl) 25 mg ONCE PRN IM agitation 01/06/19 15:15 01/13/19 15:14 Docusate Sodium (Colace) 100 mg THREE TIMES A DAY ORAL 01/05/19 18:00 02/04/19 17:59 01/07/19 12:12 Famotidine (Pepcid) 20 mg BID ORAL 01/05/19 18:00 02/04/19 17:59 01/07/19 12:12 Haloperidol Lactate (Haldol) 5 mg ONCE PRN IM agitation 01/06/19 15:30 01/13/19 15:29 Haloperidol Lactate (Haldol) 5 mg Q2H PRN IM AGITATION 01/04/19 15:00 02/03/19 14:59 Heparin Sodium (Porcine) (Heparin 5000 units/ml) 5,000 units EVERY 12 HOURS SUBQ 01/04/19 09:00 02/03/19 08:59 01/06/19 20:32 Lorazepam (Ativan 2mg/ml 1ml) 2 mg ONCE PRN IM agitation 01/06/19 15:30 01/13/19 15:29 Lorazepam (Ativan 2mg/ml 1ml) 2 mg Q1H PRN IV seizures or agitation 01/03/19 23:45 01/10/19 23:44 01/04/19 18:52 Magnesium Oxide (Mag-Ox 400mg) 400 mg THREE TIMES A DAY ORAL 01/05/19 18:00 02/04/19 17:59 01/07/19 12:11 Ondansetron HCl (Zofran) 4 mg Q6H PRN IVP Nausea & Vomiting 01/03/19 23:45 8/17/19 23:44 Quetiapine Fumarate (SEROquel) 50 mg Q12HR ORAL 01/04/19 14:30 02/03/19 14:29 01/07/19 12:17 Zolpidem Tartrate (Ambien) 5 mg HSPRN PRN ORAL Insomnia 01/03/19 23:45 01/10/19 23:44 Shabbir Mcleod MD Jan 07, 2019 14:31
--- NOTE | 2019-01-07 15:17 | NUR ---
Social Service Note SW contacted the following facilities for psych placement: [facility] [phone] no male beds [facility] [phone] (P) [phone] (F) pending review [facility] [phone] no male beds Barriers to placement medi-vishal and requires PET eval.
[2019-01-07 16:00] VITALS: BP 125/70
--- NOTE | 2019-01-07 17:27 | NUR ---
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 AMS VS: PRANAV 110/57, P 89, T 98.4, RR 18, SpO2 97 WBC 43.8, RBC 4.19, H&H 12.4/37.8 IS:SEROQUEL 50mg MED/SURG STATUS
--- NOTE | 2019-01-07 19:40 | NUR ---
HAND-OFF: Report given to ALONSO Reilly.
--- NOTE | 2019-01-07 20:00 | NUR ---
NURSE NOTES: Received patient awake,verbal,resting in bed,no complaints.
[2019-01-07 20:10] VITALS: BP 110/57
[2019-01-07] MEDS: Zolpidem 5mg tab ORAL PRN (20:40)
--- NOTE | 2019-01-07 20:45 | Cardiology Report ---
APPROVED REPORT EKG Measurement Heart [id number] Normal sinus rhythm Prolonged QT Abnormal ECG
[2019-01-08 00:11] VITALS: BP 120/56
[2019-01-08 04:07] VITALS: BP 130/66
--- NOTE | 2019-01-08 07:23 | NUR ---
HAND-OFF: Report given to Emily Espinosa RN.
[2019-01-08 07:25] LABS: BASOPHILS % (AUTO) 0.7 % (0.0-2.0); EOSINOPHILS % (AUTO) 2.5 % (0.0-3.0); HEMATOCRIT 38.5 % (42.0-52.0); HEMOGLOBIN 12.7 G/DL (14.2-18.0); MEAN CORPUSCULAR VOLUME 90 FL (80-99); MONOCYTES % (AUTO) 8.6 % (1.0-10.0); NEUTROPHILS % (AUTO) 61.2 % (45.0-75.0); PLATELET COUNT 139 K/UL (150-450); RED BLOOD COUNT 4.28 M/UL (4.70-6.10); RED CELL DISTRIBUTION WIDTH 12.4 % (11.6-14.8); WHITE BLOOD COUNT 4.2 K/UL (4.8-10.8)
[2019-01-08 07:47] LABS: ALANINE AMINOTRANSFERASE 507 U/L (12-78); ALBUMIN/GLOBULIN RATIO 1.2 (1.0-2.7); ALKALINE PHOSPHATASE 109 U/L (46-116); ANION GAP 3 mmol/L (5-15); ASPARTATE AMINO TRANSFERASE 459 U/L (15-37); BILIRUBIN,TOTAL 0.3 MG/DL (0.2-1.0); BLOOD UREA NITROGEN 13 mg/dL (7-18); CALCIUM 8.5 MG/DL (8.5-10.1); CARBON DIOXIDE 30 MMOL/L (21-32); CHLORIDE 106 MMOL/L (98-107); CHOLESTEROL 132 MG/DL (< 200); CREATININE 0.7 MG/DL (0.55-1.30); GAMMA GLUTAMYL TRANSPEPTIDASE 217 U/L (5-85); HDL CHOLESTEROL 61 MG/DL (40-60); POTASSIUM 4.4 MMOL/L (3.5-5.1); SODIUM 139 MMOL/L (136-145); TRIGLYCERIDES 41 MG/DL (30-150)
[2019-01-08 08:00] VITALS: BP 129/73
--- NOTE | 2019-01-08 08:21 | NUR ---
NURSE NOTES: Patient is awake and alert and oriented,patient receiving abdominal ultrasound at this time.patient is NPO .Will follow up.Call light within reach.
--- NOTE | 2019-01-08 08:58 | Diagnostic Imaging Report ---
Indication: Abnormal liver function tests Technique: Richter-scale and duplex images of the upper abdomen were obtained. Doppler interrogation of the pancreatic and hepatic vessels Comparison: none Findings: Gallbladder is unremarkable, without stones, wall thickening, nor pericholecystic fluid. Sonographic Martinez's sign is negative. Common bile duct measures 2 mm in diameter. No intrahepatic biliary ductal dilatation. Liver demonstrates normal echogenicity, no focal abnormality. Portal vein and hepatic veins are patent. Pancreas is unremarkable. Spleen is enlarged, measuring 13 cm long axis dimension Left kidney measures 11.8 cm in length. Right kidney measures 10.8 cm length. Both kidneys demonstrate normal echogenicity. There is mild fullness to the left renal collecting system, but no amish hydronephrosis. No focal abnormality . Abdominal aorta is partially obscured by bowel gas, visualized portions are non-aneurysmal . Impression: Splenomegaly Negative for gallstones or dilated ducts Note inability to visualize portions of the abdominal aorta
[2019-01-08] MEDS: Heparin 5000 units/ml inj SUBQ SCH ×2 (09:00→20:22)
--- NOTE | 2019-01-08 09:53 | NUR ---
NURSE NOTES: Security called due to patient locked himself in the bathroom and banging on the door .Patient was NPO and patient wants to eat.patient had Abdominal Ultrasound.Waiting for DR order to resume his diet.patient was upset because he is hungry and wants to eat. Order to resume diet .
--- NOTE | 2019-01-08 10:30 | NUR ---
Social Service Note Referral faxed to [facility] for psych admission [phone] (p) [phone] (f). Patient continues to show aggressive behavior. Patient also states intent to self harm by cutting his wrist. Will follow up. Addendum: 01/08/19 at 1351 by JENNIFER SALVADOR MASON spoke with [facility] [phone] who are requesting additional documentation. MASON spoke with [facility] who states he has been unable to locate a housing option for patient through their programs.
[2019-01-08] MEDS: Docusate 100mg cap ORAL SCH ×3 (10:40→19:05)
[2019-01-08] MEDS: Magnesium Oxide 400mg tab ORAL SCH ×3 (10:40→19:05)
[2019-01-08 12:00] VITALS: BP 119/64
--- NOTE | 2019-01-08 12:42 | Pulmonology Progress Note ---
Assessment/Plan Problems: (1) Acute encephalopathy (2) Delirium (3) Psychiatric diagnosis (4) Rhabdomyolysis Assessment/Plan feeling better ok to dc doing pt/ot needs placement Subjective ROS Limited/Unobtainable: No Constitutional: Reports: no symptoms HEENT: Repors: no symptoms Respiratory: Reports: no symptoms Allergies: Coded Allergies: UNABLE TO ASSESS (Unverified , 01/03/19) Objective Last 24 Hour Vital Signs Date Time Temp Pulse Resp B/P (MAP) Pulse Ox O2 Delivery O2 Flow Rate FiO2 01/08/19 12:00 97.9 64 17 119/64 (82) 98 01/08/19 09:00 Room Air 01/08/19 04:07 98.6 76 18 130/66 (87) 98 01/08/19 00:11 97.8 76 18 120/56 (77) 96 01/07/19 20:21 Room Air 01/07/19 20:10 98.4 77 18 110/57 (74) 97 01/07/19 16:00 98.3 75 18 125/70 (88) 97 Intake and Output 01/07/19 01/08/19 19:00 07:00 Intake Total 1000 ml Balance 1000 ml Intake Oral 1000 ml # Voids 4 2 General Appearance: WD/WN HEENT: normocephalic, atraumatic Respiratory/Chest: lungs clear, no respiratory distress Cardiovascular: normal peripheral pulses, normal rate Abdomen: soft, non tender, non distended Extremities: no cyanosis Skin: no lesions Laboratory Tests 01/08/19 06:03: White Blood Count 4.2L, Red Blood Count 4.28L, Hemoglobin 12.7L, Hematocrit 38.5L, Mean Corpuscular Volume 90, Mean Corpuscular Hemoglobin 29.7, Mean Corpuscular Hemoglobin Concent 33.1, Red Cell Distribution Width 12.4, Platelet Count 139L, Mean Platelet Volume 6.5, Neutrophils (%) (Auto) 61.2, Lymphocytes ( %) (Auto) 27.0, Monocytes (%) (Auto) 8.6, Eosinophils (%) (Auto) 2.5, Basophils (%) (Auto) 0.7, Sodium Level 139, Potassium Level 4.4, Chloride Level 106, Carbon Dioxide Level 30, Anion Gap 3L, Blood Urea Nitrogen 13, Creatinine 0.7, Estimat Glomerular Filtration Rate > 60, Glucose Level 85, Uric Acid 4.3, Calcium Level 8.5, Total Bilirubin 0.3, Gamma Glutamyl Transpeptidase 217H, Aspartate Amino Transf (AST/SGOT) 459H, Alanine Aminotransferase (ALT/SGPT) 507H , Alkaline Phosphatase 109, Ammonia 35H, Total Protein 5.6L, Albumin 3.0L, Globulin 2.6, Albumin/Globulin Ratio 1.2, Triglycerides Level 41, Cholesterol Level 132, LDL Cholesterol 64, HDL Cholesterol 61H, Cholesterol/HDL Ratio 2.2L, Vitamin B12 Level 976, Folate 11.1, Thyroid Stimulating Hormone (TSH) 0.174L, Hepatitis A IgM Antibody [Pending], Hepatitis B Surface Antigen [Pending], Hepatitis B Core IgM Antibody [Pending], Hepatitis C Antibody [Pending], HIV (1& 2) Antibody Rapid Negative Current Medications Medications (Trade) Dose Ordered Sig/Kartik Route PRN Reason Start Time Stop Time Status Last Admin Dose Admin Acetaminophen (Tylenol) 650 mg Q4H PRN ORAL fever 01/03/19 23:45 02/02/19 23:44 Chlordiazepoxide (Librium) 25 mg Q6H PRN ORAL Agitation 01/03/19 23:45 01/10/19 23:44 01/04/19 18:03 Dextrose (Dextrose 50%) 25 ml Q30M PRN IV Hypoglycemia 01/03/19 23:45 02/02/19 23:44 Diphenhydramine HCl (Benadryl) 25 mg ONCE PRN IM agitation 01/06/19 15:15 01/13/19 15:14 Docusate Sodium (Colace) 100 mg THREE TIMES A DAY ORAL 01/05/19 18:00 02/04/19 17:59 01/08/19 10:40 Famotidine (Pepcid) 20 mg BID ORAL 01/05/19 18:00 02/04/19 17:59 01/08/19 10:40 Haloperidol Lactate (Haldol) 5 mg ONCE PRN IM agitation 01/06/19 15:30 01/13/19 15:29 Haloperidol Lactate (Haldol) 5 mg Q2H PRN IM AGITATION 01/04/19 15:00 02/03/19 14:59 Heparin Sodium (Porcine) (Heparin 5000 units/ml) 5,000 units EVERY 12 HOURS SUBQ 01/04/19 09:00 02/03/19 08:59 01/06/19 20:32 Lorazepam (Ativan 2mg/ml 1ml) 2 mg ONCE PRN IM agitation 01/06/19 15:30 01/13/19 15:29 Lorazepam (Ativan 2mg/ml 1ml) 2 mg Q1H PRN IV seizures or agitation 01/03/19 23:45 01/10/19 23:44 01/04/19 18:52 Magnesium Oxide (Mag-Ox 400mg) 400 mg THREE TIMES A DAY ORAL 01/05/19 18:00 02/04/19 17:59 01/08/19 10:40 Ondansetron HCl (Zofran) 4 mg Q6H PRN IVP Nausea & Vomiting 01/03/19 23:45 02/02/19 23:44 Quetiapine Fumarate (SEROquel) 50 mg Q12HR ORAL 01/04/19 14:30 02/03/19 14:29 01/08/19 10:43 Zolpidem Tartrate (Ambien) 5 mg HSPRN PRN ORAL Insomnia 01/03/19 23:45 01/10/19 23:44 01/07/19 20:40 Shabbir Mcleod MD Jan 08, 2019 12:42
--- NOTE | 2019-01-08 13:20 | Nephrology Progress Note ---
Assessment/Plan Problem List: (1) Elevated LFTs (2) Drug overdose (3) UTI (urinary tract infection) (4) Anemia (5) Psychiatric diagnosis Assessment 1. Rhabdomyolysis. 2. UTI. 3. Methamphetamine use. 4. Psych history. 5. Anemia. 6. Malnutrition. 7. Elevated LFTs Plan Per orders Uncooparative abd KEI monitor LFTs Impression: KEI Splenomegaly Negative for gallstones or dilated ducts Subjective ROS Limited/Unobtainable: No Constitutional: Reports: malaise Objective Objective Last 24 Hour Vital Signs Date Time Temp Pulse Resp B/P (MAP) Pulse Ox O2 Delivery O2 Flow Rate FiO2 01/08/19 12:00 97.9 64 17 119/64 (82) 98 01/08/19 09:00 Room Air 01/08/19 04:07 98.6 76 18 130/66 (87) 98 01/08/19 00:11 97.8 76 18 120/56 (77) 96 01/07/19 20:21 Room Air 01/07/19 20:10 98.4 77 18 110/57 (74) 97 01/07/19 16:00 98.3 75 18 125/70 (88) 97 Intake and Output 01/07/19 01/08/19 19:00 07:00 Intake Total 1000 ml Balance 1000 ml Intake Oral 1000 ml # Voids 4 2 Laboratory Tests 01/08/19 06:03: White Blood Count 4.2L, Red Blood Count 4.28L, Hemoglobin 12.7L, Hematocrit 38.5L, Mean Corpuscular Volume 90, Mean Corpuscular Hemoglobin 29.7, Mean Corpuscular Hemoglobin Concent 33.1, Red Cell Distribution Width 12.4, Platelet Count 139L, Mean Platelet Volume 6.5, Neutrophils (%) (Auto) 61.2, Lymphocytes ( %) (Auto) 27.0, Monocytes (%) (Auto) 8.6, Eosinophils (%) (Auto) 2.5, Basophils (%) (Auto) 0.7, Sodium Level 139, Potassium Level 4.4, Chloride Level 106, Carbon Dioxide Level 30, Anion Gap 3L, Blood Urea Nitrogen 13, Creatinine 0.7, Estimat Glomerular Filtration Rate > 60, Glucose Level 85, Uric Acid 4.3, Calcium Level 8.5, Total Bilirubin 0.3, Gamma Glutamyl Transpeptidase 217H, Aspartate Amino Transf (AST/SGOT) 459H, Alanine Aminotransferase (ALT/SGPT) 507H , Alkaline Phosphatase 109, Ammonia 35H, Total Protein 5.6L, Albumin 3.0L, Globulin 2.6, Albumin/Globulin Ratio 1.2, Triglycerides Level 41, Cholesterol Level 132, LDL Cholesterol 64, HDL Cholesterol 61H, Cholesterol/HDL Ratio 2.2L, Vitamin B12 Level 976, Folate 11.1, Thyroid Stimulating Hormone (TSH) 0.174L, Hepatitis A IgM Antibody [Pending], Hepatitis B Surface Antigen [Pending], Hepatitis B Core IgM Antibody [Pending], Hepatitis C Antibody [Pending], HIV (1& 2) Antibody Rapid Negative Height (Feet): 6 Height (Inches): 0.00 Weight (Pounds): 150 General Appearance: no apparent distress Objective no change Kunal Webster MD Jan 08, 2019 13:20
--- NOTE | 2019-01-08 13:22 | Infectious Diseases Prog Note ---
Assessment/Plan Assessment/Plan Abx: None Assessment: Acute encephalopathy- no obvious infections process Drug intoxication -UDS + Benzo, methamphetamine, THC -CT head: No acute process Afebrile NO leukocytosis -CXR: No acute process -u/a neg Elevated LFTs- r/o viral hepatitis; worsening -Abd US: Splenomegaly. Negative for gallstones or dilated ducts. Note inability to visualize portions of the abdominal aorta -hep panel p -HIV ab screen neg ADHD bipolar disorder Plan: -Continue to monitor off abx -f/u cx -Monitor CBC/CMP, temperatures -f/u Hep panel Thank you for this consultation. Will continue to follow along with you. Discussed with RN. Subjective Allergies: Coded Allergies: UNABLE TO ASSESS (Unverified , 01/03/19) Subjective afebrile no leukocytosis elevated LFTs; worsening Objective Vital Signs Last 24 Hour Vital Signs Date Time Temp Pulse Resp B/P (MAP) Pulse Ox O2 Delivery O2 Flow Rate FiO2 01/08/19 12:00 97.9 64 17 119/64 (82) 98 01/08/19 09:00 Room Air 01/08/19 04:07 98.6 76 18 130/66 (87) 98 01/08/19 00:11 97.8 76 18 120/56 (77) 96 01/07/19 20:21 Room Air 01/07/19 20:10 98.4 77 18 110/57 (74) 97 01/07/19 16:00 98.3 75 18 125/70 (88) 97 Height (Feet): 6 Height (Inches): 0.00 Weight (Pounds): 150 Objective GENERAL: Calm in bed, oriented x2, in no acute distress. CARDIOVASCULAR: No murmur. LUNGS: Distant and clear. ABDOMEN: Positive bowel sounds. Nontender. Nondistended. EXTREMITIES: Show no cyanosis or edema. NEUROLOGIC: The patient moves all extremities slightly weak. Laboratory Tests Test 01/08/19 06:03 White Blood Count 4.2 K/UL (4.8-10.8) L Red Blood Count 4.28 M/UL (4.70-6.10) L Hemoglobin 12.7 G/DL (14.2-18.0) L Hematocrit 38.5 % (42.0-52.0) L Mean Corpuscular Volume 90 FL (80-99) Mean Corpuscular Hemoglobin 29.7 PG (27.0-31.0) Mean Corpuscular Hemoglobin Concent 33.1 G/DL (32.0-36.0) Red Cell Distribution Width 12.4 % (11.6-14.8) Platelet Count 139 K/UL (150-450) L Mean Platelet Volume 6.5 FL (6.5-10.1) Neutrophils (%) (Auto) 61.2 % (45.0-75.0) Lymphocytes (%) (Auto) 27.0 % (20.0-45.0) Monocytes (%) (Auto) 8.6 % (1.0-10.0) Eosinophils (%) (Auto) 2.5 % (0.0-3.0) Basophils (%) (Auto) 0.7 % (0.0-2.0) Sodium Level 139 MMOL/L (136-145) Potassium Level 4.4 MMOL/L (3.5-5.1) Chloride Level 106 MMOL/L (98-107) Carbon Dioxide Level 30 MMOL/L (21-32) Anion Gap 3 mmol/L (5-15) L Blood Urea Nitrogen 13 mg/dL (7-18) Creatinine 0.7 MG/DL (0.55-1.30) Estimat Glomerular Filtration Rate > 60 mL/min (>60) Glucose Level 85 MG/DL (74-106) Uric Acid 4.3 MG/DL (2.6-7.2) Calcium Level 8.5 MG/DL (8.5-10.1) Total Bilirubin 0.3 MG/DL (0.2-1.0) Gamma Glutamyl Transpeptidase 217 U/L (5-85) H Aspartate Amino Transf (AST/SGOT) 459 U/L (15-37) H Alanine Aminotransferase (ALT/SGPT) 507 U/L (12-78) H Alkaline Phosphatase 109 U/L (46-116) Ammonia 35 umol/L (11-32) H Total Protein 5.6 G/DL (6.4-8.2) L Albumin 3.0 G/DL (3.4-5.0) L Globulin 2.6 g/dL Albumin/Globulin Ratio 1.2 (1.0-2.7) Triglycerides Level 41 MG/DL (30-150) Cholesterol Level 132 MG/DL (< 200) LDL Cholesterol 64 mg/dL (<100) HDL Cholesterol 61 MG/DL (40-60) H Cholesterol/HDL Ratio 2.2 (3.3-4.4) L Vitamin B12 Level 976 PG/ML (193-986) Folate 11.1 NG/ML (8.6-58.9) Thyroid Stimulating Hormone (TSH) 0.174 uiU/mL (0.358-3.740) Hepatitis A IgM Antibody Pending Hepatitis B Surface Antigen Pending Hepatitis B Core IgM Antibody Pending Hepatitis C Antibody Pending HIV (1&2) Antibody Rapid Negative (NEGATIVE) Current Medications Medications (Trade) Dose Ordered Sig/Kartik Route PRN Reason Start Time Stop Time Status Last Admin Dose Admin Acetaminophen (Tylenol) 650 mg Q4H PRN ORAL fever 01/03/19 23:45 02/02/19 23:44 Chlordiazepoxide (Librium) 25 mg Q6H PRN ORAL Agitation 01/03/19 23:45 01/10/19 23:44 01/04/19 18:03 Dextrose (Dextrose 50%) 25 ml Q30M PRN IV Hypoglycemia 01/03/19 23:45 02/02/19 23:44 Diphenhydramine HCl (Benadryl) 25 mg ONCE PRN IM agitation 01/06/19 15:15 01/13/19 15:14 Docusate Sodium (Colace) 100 mg THREE TIMES A DAY ORAL 01/05/19 18:00 02/04/19 17:59 01/08/19 10:40 Famotidine (Pepcid) 20 mg BID ORAL 01/05/19 18:00 02/04/19 17:59 01/08/19 10:40 Haloperidol Lactate (Haldol) 5 mg ONCE PRN IM agitation 01/06/19 15:30 01/13/19 15:29 Haloperidol Lactate (Haldol) 5 mg Q2H PRN IM AGITATION 01/04/19 15:00 02/03/19 14:59 Heparin Sodium (Porcine) (Heparin 5000 units/ml) 5,000 units EVERY 12 HOURS SUBQ 01/04/19 09:00 02/03/19 08:59 01/06/19 20:32 Lorazepam (Ativan 2mg/ml 1ml) 2 mg ONCE PRN IM agitation 01/06/19 15:30 01/13/19 15:29 Lorazepam (Ativan 2mg/ml 1ml) 2 mg Q1H PRN IV seizures or agitation 01/03/19 23:45 01/10/19 23:44 01/04/19 18:52 Magnesium Oxide (Mag-Ox 400mg) 400 mg THREE TIMES A DAY ORAL 01/05/19 18:00 02/04/19 17:59 01/08/19 10:40 Ondansetron HCl (Zofran) 4 mg Q6H PRN IVP Nausea & Vomiting 01/03/19 23:45 02/02/19 23:44 Quetiapine Fumarate (SEROquel) 50 mg Q12HR ORAL 01/04/19 14:30 02/03/19 14:29 01/08/19 10:43 Zolpidem Tartrate (Ambien) 5 mg HSPRN PRN ORAL Insomnia 01/03/19 23:45 01/10/19 23:44 01/07/19 20:40 Bridgette Ortiz M.D. Jan 08, 2019 13:22
[2019-01-08 16:00] VITALS: BP 118/71
--- NOTE | 2019-01-08 16:03 | General Progress Note ---
Assessment/Plan Problem List: (1) Malnutrition ICD Codes: E46 - Unspecified protein-calorie malnutrition SNOMED: 06152930 (2) Psychiatric diagnosis ICD Codes: F99 - Mental disorder, not otherwise specified SNOMED: 22254552 (3) Drug overdose ICD Codes: T50.901A - Poisoning by unspecified drugs, medicaments and biological substances, accidental (unintentional), initial encounter SNOMED: 08266325 (4) Anemia ICD Codes: D64.9 - Anemia, unspecified SNOMED: 315564790 (5) UTI (urinary tract infection) ICD Codes: N39.0 - Urinary tract infection, site not specified SNOMED: 97082493 Status: stable, progressing Assessment/Plan: pt diet abx detox cbc bmp am dc to psyc Subjective Constitutional: Reports: weakness Allergies: Coded Allergies: UNABLE TO ASSESS (Unverified , 01/03/19) All Systems: reviewed and negative except above Subjective calm in room Objective Last 24 Hour Vital Signs Date Time Temp Pulse Resp B/P (MAP) Pulse Ox O2 Delivery O2 Flow Rate FiO2 01/08/19 12:00 97.9 64 17 119/64 (82) 98 01/08/19 09:00 Room Air 01/08/19 04:07 98.6 76 18 130/66 (87) 98 01/08/19 00:11 97.8 76 18 120/56 (77) 96 01/07/19 20:21 Room Air 01/07/19 20:10 98.4 77 18 110/57 (74) 97 Intake and Output 01/07/19 01/08/19 19:00 07:00 Intake Total 1000 ml Balance 1000 ml Intake Oral 1000 ml # Voids 4 2 Laboratory Tests 01/08/19 06:03: White Blood Count 4.2L, Red Blood Count 4.28L, Hemoglobin 12.7L, Hematocrit 38.5L, Mean Corpuscular Volume 90, Mean Corpuscular Hemoglobin 29.7, Mean Corpuscular Hemoglobin Concent 33.1, Red Cell Distribution Width 12.4, Platelet Count 139L, Mean Platelet Volume 6.5, Neutrophils (%) (Auto) 61.2, Lymphocytes ( %) (Auto) 27.0, Monocytes (%) (Auto) 8.6, Eosinophils (%) (Auto) 2.5, Basophils (%) (Auto) 0.7, Sodium Level 139, Potassium Level 4.4, Chloride Level 106, Carbon Dioxide Level 30, Anion Gap 3L, Blood Urea Nitrogen 13, Creatinine 0.7, Estimat Glomerular Filtration Rate > 60, Glucose Level 85, Uric Acid 4.3, Calcium Level 8.5, Total Bilirubin 0.3, Gamma Glutamyl Transpeptidase 217H, Aspartate Amino Transf (AST/SGOT) 459H, Alanine Aminotransferase (ALT/SGPT) 507H , Alkaline Phosphatase 109, Ammonia 35H, Total Protein 5.6L, Albumin 3.0L, Globulin 2.6, Albumin/Globulin Ratio 1.2, Triglycerides Level 41, Cholesterol Level 132, LDL Cholesterol 64, HDL Cholesterol 61H, Cholesterol/HDL Ratio 2.2L, Vitamin B12 Level 976, Folate 11.1, Thyroid Stimulating Hormone (TSH) 0.174L, Hepatitis A IgM Antibody [Pending], Hepatitis B Surface Antigen [Pending], Hepatitis B Core IgM Antibody [Pending], Hepatitis C Antibody [Pending], HIV (1& 2) Antibody Rapid Negative Height (Feet): 6 Height (Inches): 0.00 Weight (Pounds): 150 General Appearance: lethargic EENT: normal ENT inspection Neck: normal alignment Cardiovascular: normal peripheral pulses, normal rate, regular rhythm Respiratory/Chest: chest wall non-tender, lungs clear, normal breath sounds Abdomen: normal bowel sounds, non tender, soft Extremities: normal inspection Edema: no edema noted Arm (L), no edema noted Arm (R), no edema noted Leg (L), no edema noted Leg (R), no edema noted Pedal (L), no edema noted Pedal (R), no edema noted Generalized Neurologic: motor weakness Skin: normal pigmentation, warm/dry Guy Garcia DO Jan 08, 2019 16:03
--- NOTE | 2019-01-08 16:13 | NUR ---
VICE PRESIDENT MEDIA RELATIONSALLERGIST/IMMUNOLOGIST PHYSICIAN SI:RHABDOMYOLYSIS . AMS VS: BP 119/64, P 64, T 98.2, RR 18, SpO2 98 WBC 4.2, RBC 4.28, H&H 12.7/38.5 IS:MAGNESIUM OXIDE SEROQUEL 50mg LIBRIUM 25mg AMBIEN 5mg MED/SURG STATUS
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
--- NOTE | 2019-01-08 16:58 | NUR ---
Social Service Note Patient accepted at [facility] (formerly [facility]) psych unit, under the care of Dr. Bernard. Nurse to call report [phone] to charge nurse Ling. Room assessment will be provided once report is given. Ambulance on will-call [phone].
--- NOTE | 2019-01-08 17:18 | NUR ---
DISCHARGE PLANNING Discharge order noted Per MASON, Patient accepted at [facility] psych unit, under the care of Dr. Bernard. Nurse to call report [phone]
--- NOTE | 2019-01-08 17:30 | NUR ---
NURSE NOTES: Facility was called to give report,charge Nurse Ling state she will review the patient packet and will call back.
--- NOTE | 2019-01-08 17:50 | NUR ---
NURSE NOTES: charge Nurse Ling from [facility] will need more information on the patient before able to accept patient to facility.,asking to fax information such as drug screen on patient ER notes,DR ramírez. Will provide information .
--- NOTE | 2019-01-08 19:08 | NUR ---
NURSE NOTES: Patient has been more cooperative,calmer,no agitation noted.
--- NOTE | 2019-01-08 19:42 | NUR ---
HAND-OFF: Report given to Braulio GUPTA
[2019-01-08 20:00] VITALS: BP 116/71
[2019-01-08] MEDS: chlordiazePOXIDE 25mg Cap ORAL PRN (20:22)
[2019-01-08] MEDS: Zolpidem 5mg tab ORAL PRN (20:22)
--- NOTE | 2019-01-08 21:00 | NUR ---
NURSE NOTES: Pt is in bed, awake and verbal. No acute distress noted. Pt is restless. Pt keeps on requesting for food. Pt is given jello and juice. Librium given as ordered for agitation. Bed locked low in position,side rails up and call light within reach. Pt instructed to call for assistance. Pt will be monitored.
--- NOTE | 2019-01-08 22:25 | NUR ---
NURSE NOTES: Adrián from [facility] ([facility] called and informed that the facility is not accepting the patient for now.
[2019-01-09] VITALS: BP 120/77
--- NOTE | 2019-01-09 02:48 | NUR ---
NURSE NOTES: Pt is in bed, asleep. No acute distress noted. Vitals stable.
[2019-01-09 04:00] VITALS: BP 124/71
[2019-01-09 07:09] LABS: ANION GAP 6 mmol/L (5-15); BLOOD UREA NITROGEN 18 mg/dL (7-18); CALCIUM 8.8 MG/DL (8.5-10.1); CARBON DIOXIDE 31 MMOL/L (21-32); CHLORIDE 105 MMOL/L (98-107); CREATININE 0.8 MG/DL (0.55-1.30); POTASSIUM 4.5 MMOL/L (3.5-5.1); SODIUM 142 MMOL/L (136-145)
[2019-01-09 07:10] LABS: BASOPHILS % (AUTO) 1.1 % (0.0-2.0); EOSINOPHILS % (AUTO) 2.9 % (0.0-3.0); HEMATOCRIT 39.8 % (42.0-52.0); HEMOGLOBIN 13.2 G/DL (14.2-18.0); LYMPHOCYTES % (AUTO) 28.7 % (20.0-45.0); MEAN CORPUSCULAR VOLUME 90 FL (80-99); MONOCYTES % (AUTO) 10.3 % (1.0-10.0); PLATELET COUNT 144 K/UL (150-450); RED BLOOD COUNT 4.41 M/UL (4.70-6.10); WHITE BLOOD COUNT 4.8 K/UL (4.8-10.8)
--- NOTE | 2019-01-09 07:30 | NUR ---
HAND-OFF: Report given to ALONSO Diaz.
--- NOTE | 2019-01-09 07:40 | NUR ---
NURSE NOTES: Patient is awake and alert and oriented,sitting up in bed watching TV.Patient ate 100% of breakfast and requesting additional food,will call dietary.Call light within reach.
[2019-01-09 08:00] VITALS: BP 108/68
[2019-01-09] MEDS: Magnesium Oxide 400mg tab ORAL SCH ×2 (08:22→13:18)
[2019-01-09] MEDS: Docusate 100mg cap ORAL SCH ×2 (08:23→13:18)
[2019-01-09] MEDS: Heparin 5000 units/ml inj SUBQ SCH (08:26)
--- NOTE | 2019-01-09 09:15 | General Progress Note ---
Assessment/Plan Problem List: (1) Malnutrition ICD Codes: E46 - Unspecified protein-calorie malnutrition SNOMED: 77353199 (2) Psychiatric diagnosis ICD Codes: F99 - Mental disorder, not otherwise specified SNOMED: 63547197 (3) Drug overdose ICD Codes: T50.901A - Poisoning by unspecified drugs, medicaments and biological substances, accidental (unintentional), initial encounter SNOMED: 86231426 (4) Anemia ICD Codes: D64.9 - Anemia, unspecified SNOMED: 908695346 (5) UTI (urinary tract infection) ICD Codes: N39.0 - Urinary tract infection, site not specified SNOMED: 70410608 Status: stable, progressing Assessment/Plan: pt diet abx detox cbc bmp am dc to psyc Subjective Constitutional: Reports: weakness Allergies: Coded Allergies: UNABLE TO ASSESS (Unverified , 01/03/19) All Systems: reviewed and negative except above Subjective calm in room Objective Last 24 Hour Vital Signs Date Time Temp Pulse Resp B/P (MAP) Pulse Ox O2 Delivery O2 Flow Rate FiO2 01/09/19 08:00 97.8 93 18 108/68 (81) 97 01/09/19 04:00 98.0 66 20 124/71 (88) 99 01/09/19 00:00 98.4 67 20 120/77 (91) 99 01/08/19 21:00 Room Air 01/08/19 20:00 97.9 64 20 116/71 (86) 97 01/08/19 16:00 98.2 66 17 118/71 (87) 97 01/08/19 12:00 97.9 64 17 119/64 (82) 98 Intake and Output 01/08/19 01/09/19 19:00 07:00 Intake Total 600 ml Balance 600 ml Intake Oral 600 ml # Voids 3 Laboratory Tests 01/09/19 05:50: White Blood Count 4.8, Red Blood Count 4.41L, Hemoglobin 13.2L, Hematocrit 39.8L , Mean Corpuscular Volume 90, Mean Corpuscular Hemoglobin 29.9, Mean Corpuscular Hemoglobin Concent 33.1, Red Cell Distribution Width 13.0, Platelet Count 144L, Mean Platelet Volume 7.7, Neutrophils (%) (Auto) 57.0, Lymphocytes ( %) (Auto) 28.7, Monocytes (%) (Auto) 10.3H, Eosinophils (%) (Auto) 2.9, Basophils (%) (Auto) 1.1, Sodium Level 142, Potassium Level 4.5, Chloride Level 105, Carbon Dioxide Level 31, Anion Gap 6, Blood Urea Nitrogen 18, Creatinine 0.8, Estimat Glomerular Filtration Rate > 60, Glucose Level 87, Calcium Level 8.8 Height (Feet): 6 Height (Inches): 0.00 Weight (Pounds): 154 General Appearance: lethargic EENT: normal ENT inspection Neck: non-tender, normal alignment, supple Cardiovascular: normal peripheral pulses, normal rate, regular rhythm Respiratory/Chest: chest wall non-tender, lungs clear, normal breath sounds Abdomen: normal bowel sounds, non tender, soft Extremities: normal inspection Edema: no edema noted Arm (L), no edema noted Arm (R), no edema noted Leg (L), no edema noted Leg (R), no edema noted Pedal (L), no edema noted Pedal (R), no edema noted Generalized Neurologic: motor weakness Skin: normal pigmentation, warm/dry Guy Garcia DO Jan 09, 2019 09:15
--- NOTE | 2019-01-09 11:32 | Pulmonology Progress Note ---
Assessment/Plan Problems: (1) Acute encephalopathy (2) Delirium (3) Psychiatric diagnosis (4) Rhabdomyolysis Assessment/Plan feeling better doing pt/ot needs placement Subjective ROS Limited/Unobtainable: No Constitutional: Reports: no symptoms HEENT: Repors: no symptoms Allergies: Coded Allergies: UNABLE TO ASSESS (Unverified , 01/03/19) Objective Last 24 Hour Vital Signs Date Time Temp Pulse Resp B/P (MAP) Pulse Ox O2 Delivery O2 Flow Rate FiO2 01/09/19 10:11 Room Air 01/09/19 08:00 97.8 93 18 108/68 (81) 97 01/09/19 04:00 98.0 66 20 124/71 (88) 99 01/09/19 00:00 98.4 67 20 120/77 (91) 99 01/08/19 21:00 Room Air 01/08/19 20:00 97.9 64 20 116/71 (86) 97 01/08/19 16:00 98.2 66 17 118/71 (87) 97 01/08/19 12:00 97.9 64 17 119/64 (82) 98 Intake and Output 01/08/19 01/09/19 19:00 07:00 Intake Total 600 ml Balance 600 ml Intake Oral 600 ml # Voids 3 General Appearance: no acute distress HEENT: normocephalic, atraumatic Respiratory/Chest: chest wall non-tender, lungs clear Cardiovascular: normal peripheral pulses, normal rate Genitourinary: normal external genitalia Extremities: no cyanosis Skin: no rash Laboratory Tests 01/09/19 05:50: White Blood Count 4.8, Red Blood Count 4.41L, Hemoglobin 13.2L, Hematocrit 39.8L , Mean Corpuscular Volume 90, Mean Corpuscular Hemoglobin 29.9, Mean Corpuscular Hemoglobin Concent 33.1, Red Cell Distribution Width 13.0, Platelet Count 144L, Mean Platelet Volume 7.7, Neutrophils (%) (Auto) 57.0, Lymphocytes ( %) (Auto) 28.7, Monocytes (%) (Auto) 10.3H, Eosinophils (%) (Auto) 2.9, Basophils (%) (Auto) 1.1, Sodium Level 142, Potassium Level 4.5, Chloride Level 105, Carbon Dioxide Level 31, Anion Gap 6, Blood Urea Nitrogen 18, Creatinine 0.8, Estimat Glomerular Filtration Rate > 60, Glucose Level 87, Calcium Level 8.8 Current Medications Medications (Trade) Dose Ordered Sig/Kartik Route PRN Reason Start Time Stop Time Status Last Admin Dose Admin Acetaminophen (Tylenol) 650 mg Q4H PRN ORAL fever 01/03/19 23:45 02/02/19 23:44 Chlordiazepoxide (Librium) 25 mg Q6H PRN ORAL Agitation 01/03/19 23:45 01/10/19 23:44 01/08/19 20:22 Dextrose (Dextrose 50%) 25 ml Q30M PRN IV Hypoglycemia 01/03/19 23:45 02/02/19 23:44 Diphenhydramine HCl (Benadryl) 25 mg ONCE PRN IM agitation 01/06/19 15:15 01/13/19 15:14 Docusate Sodium (Colace) 100 mg THREE TIMES A DAY ORAL 01/05/19 18:00 02/04/19 17:59 01/09/19 08:23 Famotidine (Pepcid) 20 mg BID ORAL 01/05/19 18:00 02/04/19 17:59 01/09/19 08:22 Haloperidol Lactate (Haldol) 5 mg ONCE PRN IM agitation 01/06/19 15:30 01/13/19 15:29 Haloperidol Lactate (Haldol) 5 mg Q2H PRN IM AGITATION 01/04/19 15:00 02/03/19 14:59 Heparin Sodium (Porcine) (Heparin 5000 units/ml) 5,000 units EVERY 12 HOURS SUBQ 01/04/19 09:00 02/03/19 08:59 01/06/19 20:32 Lorazepam (Ativan 2mg/ml 1ml) 2 mg ONCE PRN IM agitation 01/06/19 15:30 01/13/19 15:29 Lorazepam (Ativan 2mg/ml 1ml) 2 mg Q1H PRN IV seizures or agitation 01/03/19 23:45 01/10/19 23:44 01/04/19 18:52 Magnesium Oxide (Mag-Ox 400mg) 400 mg THREE TIMES A DAY ORAL 01/05/19 18:00 02/04/19 17:59 01/09/19 08:22 Ondansetron HCl (Zofran) 4 mg Q6H PRN IVP Nausea & Vomiting 01/03/19 23:45 02/02/19 23:44 Quetiapine Fumarate (SEROquel) 50 mg Q12HR ORAL 01/04/19 14:30 02/03/19 14:29 01/09/19 08:23 Zolpidem Tartrate (Ambien) 5 mg HSPRN PRN ORAL Insomnia 01/03/19 23:45 01/10/19 23:44 01/08/19 20:22 Shabbir Mcleod MD Jan 09, 2019 11:32
--- NOTE | 2019-01-09 11:39 | NUR ---
Social Service Note Patient accepted to [facility] [address] [facility] [address] under the care of Dr. Proctor. Nurse to call report to [phone], room assignment will be provided once report provided. [facility] on will-call [phone].
[2019-01-09 12:00] VITALS: BP 115/72
--- NOTE | 2019-01-09 13:45 | Infectious Diseases Prog Note ---
Assessment/Plan Assessment/Plan Assessment: Acute encephalopathy- no obvious infections process Drug intoxication -UDS + Benzo, methamphetamine, THC -CT head: No acute process Afebrile NO leukocytosis -CXR: No acute process -u/a neg Elevated LFTs- Hepatitis C + -Abd US: Splenomegaly. Negative for gallstones or dilated ducts. Note inability to visualize portions of the abdominal aorta -hep C ab+ -HIV ab screen neg ADHD bipolar disorder Plan: -Continue to monitor off abx -f/u cx -Monitor CBC/CMP, temperatures -Hep C VL -GI eval -CMP am Thank you for this consultation. Will continue to follow along with you. Discussed with RN. Subjective Allergies: Coded Allergies: UNABLE TO ASSESS (Unverified , 01/03/19) Subjective afebrile no leukocytosis elevated LFTs Objective Vital Signs Last 24 Hour Vital Signs Date Time Temp Pulse Resp B/P (MAP) Pulse Ox O2 Delivery O2 Flow Rate FiO2 01/09/19 12:00 98.5 66 17 115/72 (86) 95 01/09/19 10:11 Room Air 01/09/19 08:00 97.8 93 18 108/68 (81) 97 01/09/19 04:00 98.0 66 20 124/71 (88) 99 01/09/19 00:00 98.4 67 20 120/77 (91) 99 01/08/19 21:00 Room Air 01/08/19 20:00 97.9 64 20 116/71 (86) 97 01/08/19 16:00 98.2 66 17 118/71 (87) 97 Height (Feet): 6 Height (Inches): 0.00 Weight (Pounds): 154 Objective GENERAL: Calm in bed, oriented x2, in no acute distress. CARDIOVASCULAR: No murmur. LUNGS: Distant and clear. ABDOMEN: Positive bowel sounds. Nontender. Nondistended. EXTREMITIES: Show no cyanosis or edema. NEUROLOGIC: The patient moves all extremities slightly weak. Laboratory Tests Test 01/09/19 05:50 White Blood Count 4.8 K/UL (4.8-10.8) Red Blood Count 4.41 M/UL (4.70-6.10) L Hemoglobin 13.2 G/DL (14.2-18.0) L Hematocrit 39.8 % (42.0-52.0) L Mean Corpuscular Volume 90 FL (80-99) Mean Corpuscular Hemoglobin 29.9 PG (27.0-31.0) Mean Corpuscular Hemoglobin Concent 33.1 G/DL (32.0-36.0) Red Cell Distribution Width 13.0 % (11.6-14.8) Platelet Count 144 K/UL (150-450) L Mean Platelet Volume 7.7 FL (6.5-10.1) Neutrophils (%) (Auto) 57.0 % (45.0-75.0) Lymphocytes (%) (Auto) 28.7 % (20.0-45.0) Monocytes (%) (Auto) 10.3 % (1.0-10.0) H Eosinophils (%) (Auto) 2.9 % (0.0-3.0) Basophils (%) (Auto) 1.1 % (0.0-2.0) Sodium Level 142 MMOL/L (136-145) Potassium Level 4.5 MMOL/L (3.5-5.1) Chloride Level 105 MMOL/L (98-107) Carbon Dioxide Level 31 MMOL/L (21-32) Anion Gap 6 mmol/L (5-15) Blood Urea Nitrogen 18 mg/dL (7-18) Creatinine 0.8 MG/DL (0.55-1.30) Estimat Glomerular Filtration Rate > 60 mL/min (>60) Glucose Level 87 MG/DL (74-106) Calcium Level 8.8 MG/DL (8.5-10.1) Current Medications Medications (Trade) Dose Ordered Sig/Kartik Route PRN Reason Start Time Stop Time Status Last Admin Dose Admin Acetaminophen (Tylenol) 650 mg Q4H PRN ORAL fever 01/03/19 23:45 02/02/19 23:44 Chlordiazepoxide (Librium) 25 mg Q6H PRN ORAL Agitation 01/03/19 23:45 01/10/19 23:44 01/08/19 20:22 Dextrose (Dextrose 50%) 25 ml Q30M PRN IV Hypoglycemia 01/03/19 23:45 02/02/19 23:44 Diphenhydramine HCl (Benadryl) 25 mg ONCE PRN IM agitation 01/06/19 15:15 01/13/19 15:14 Docusate Sodium (Colace) 100 mg THREE TIMES A DAY ORAL 01/05/19 18:00 02/04/19 17:59 01/09/19 13:18 Famotidine (Pepcid) 20 mg BID ORAL 01/05/19 18:00 02/04/19 17:59 01/09/19 08:22 Haloperidol Lactate (Haldol) 5 mg ONCE PRN IM agitation 01/06/19 15:30 01/13/19 15:29 Haloperidol Lactate (Haldol) 5 mg Q2H PRN IM AGITATION 01/04/19 15:00 02/03/19 14:59 Heparin Sodium (Porcine) (Heparin 5000 units/ml) 5,000 units EVERY 12 HOURS SUBQ 01/04/19 09:00 02/03/19 08:59 01/06/19 20:32 Lorazepam (Ativan 2mg/ml 1ml) 2 mg ONCE PRN IM agitation 01/06/19 15:30 01/13/19 15:29 Lorazepam (Ativan 2mg/ml 1ml) 2 mg Q1H PRN IV seizures or agitation 01/03/19 23:45 01/10/19 23:44 01/04/19 18:52 Magnesium Oxide (Mag-Ox 400mg) 400 mg THREE TIMES A DAY ORAL 01/05/19 18:00 02/04/19 17:59 01/09/19 13:18 Ondansetron HCl (Zofran) 4 mg Q6H PRN IVP Nausea & Vomiting 01/03/19 23:45 02/02/19 23:44 Quetiapine Fumarate (SEROquel) 50 mg Q12HR ORAL 01/04/19 14:30 02/03/19 14:29 01/09/19 08:23 Zolpidem Tartrate (Ambien) 5 mg HSPRN PRN ORAL Insomnia 01/03/19 23:45 01/10/19 23:44 01/08/19 20:22 Bridgette Ortiz M.D. Jan 09, 2019 13:45
--- NOTE | 2019-01-09 15:07 | Nephrology Progress Note ---
Assessment/Plan Problem List: (1) Elevated LFTs (2) Drug overdose (3) UTI (urinary tract infection) (4) Anemia (5) Psychiatric diagnosis Assessment 1. Rhabdomyolysis. 2. UTI. 3. Methamphetamine use. 4. Psych history. 5. Anemia. 6. Malnutrition. 7. Elevated LFTs Plan Per orders Uncooparative abd KEI monitor LFTs Impression: KEI Splenomegaly Negative for gallstones or dilated ducts Subjective ROS Limited/Unobtainable: No Objective Objective Last 24 Hour Vital Signs Date Time Temp Pulse Resp B/P (MAP) Pulse Ox O2 Delivery O2 Flow Rate FiO2 01/09/19 12:00 98.5 66 17 115/72 (86) 95 01/09/19 10:11 Room Air 01/09/19 08:00 97.8 93 18 108/68 (81) 97 01/09/19 04:00 98.0 66 20 124/71 (88) 99 01/09/19 00:00 98.4 67 20 120/77 (91) 99 01/08/19 21:00 Room Air 01/08/19 20:00 97.9 64 20 116/71 (86) 97 01/08/19 16:00 98.2 66 17 118/71 (87) 97 Intake and Output 01/08/19 01/09/19 19:00 07:00 Intake Total 600 ml Balance 600 ml Intake Oral 600 ml # Voids 3 Laboratory Tests 01/09/19 05:50: White Blood Count 4.8, Red Blood Count 4.41L, Hemoglobin 13.2L, Hematocrit 39.8L , Mean Corpuscular Volume 90, Mean Corpuscular Hemoglobin 29.9, Mean Corpuscular Hemoglobin Concent 33.1, Red Cell Distribution Width 13.0, Platelet Count 144L, Mean Platelet Volume 7.7, Neutrophils (%) (Auto) 57.0, Lymphocytes ( %) (Auto) 28.7, Monocytes (%) (Auto) 10.3H, Eosinophils (%) (Auto) 2.9, Basophils (%) (Auto) 1.1, Sodium Level 142, Potassium Level 4.5, Chloride Level 105, Carbon Dioxide Level 31, Anion Gap 6, Blood Urea Nitrogen 18, Creatinine 0.8, Estimat Glomerular Filtration Rate > 60, Glucose Level 87, Calcium Level 8.8 Height (Feet): 6 Height (Inches): 0.00 Weight (Pounds): 154 General Appearance: no apparent distress Objective no change Kunal Webster MD Jan 09, 2019 15:07
--- NOTE | 2019-01-09 15:52 | NUR ---
NURSE NOTES: Report given to Syed GUPTA at [facility]. [facility] to transfer patient to facility.
[2019-01-09 16:00] VITALS: BP 125/69
--- NOTE | 2019-01-09 17:47 | NUR ---
NURSE NOTES: Patient transferred to [facility] by [facility] personnel,patient has personal belongings.patient own medication retrieved from pharmacy and given to [facility] to give to receiving RN at [facility] facility. ID hospital band removed,patient has no iv.Patient agree with transferring to facility.
--- NOTE | 2019-01-09 17:56 | NUR ---
NURSE NOTES: DR Ortiz aware of patient discharge.
--- NOTE | 2019-01-10 07:48 | Discharge Summary ---
Discharge Summary Discharge Summary _ DATE OF ADMISSION: 01/04/2019 DATE OF DISCHARGE: 01/09/2019 DISCHARGED BY: Dr Garcia REASON FOR ADMISSION: 23 years old male presented with altered mental status. Patient was seen running around the streets.EMS was called. Patient was given Versed by EMS. Patient refused to answer any question and to give his name initially. Patient endorsed using illegal substances . Upon evaluation laboratory work-up revealed no leukocytosis, hemoglobin 12.6, hematocrit 36.7. Potassium 3.1. BUN 20, creatinine 1.2. CK 936. AST 236, ALT 357. Serum alcohol, salicylates, and Tylenol levels were negative. Urine toxicology screen was positive for amphetamine, benzodiazepine and marijuana. EKG revealed sinus rhythm, no acute ischemic changes. CT of the head revealed no acute intracranial pathology. Chest x-ray demonstrated no acute cardiopulmonary process. Patient admitted with altered mental status, rhabdomyolysis, drug intoxication. CONSULTANTS: pulmonary/boarding specialist Dr. Mcleod ID specialist Dr. Ortiz rn bariatric Dr. Webster [facility] COURSE: Patient admitted to medical surgical floor. Theatre Manager, boarding specialist and ID specialist followed. Patient started on the IV fluids . Mental status was closely monitored. Renal parameters and electrolytes were closely monitor, electrolytes replaced as needed. Nephrotoxins were avoided. LFT and CJ were closely monitored. Abdominal ultrasound revealed splenomegaly, no gallstones or dilated ducts. Hepatitis panel revealed positive hepatitis C antibody. Hemoglobin and hematocrit were closely monitored with goal to keep hemoglobin above 7, remained at baseline. Prior to discharge hemoglobin is 13.2, hematocrit 39.8. DVT and GI prophylaxis provided. Psychiatric medication resumed. ID specialist followed. Urinalysis revealed no evidence of UTI. Chest x-ray was negative. No obvious infection process. HIV test was nonreactive. ID specialist recommended to keep patient off antibiotics. Electrolytes stabilized. Folate and B12 stable. CK trended down to normal 116. Patient was medically cleared to be transferred to psychiatric facility. Placement was arranged to [facility] [place] under the care of Dr. Proctor. Patient was stable for transfer . FINAL DIAGNOSES: Acute encephalopathy Rhabdomyolysis Drug intoxication Delirium. Polysubstance abuse /methamphetamine , marijuana Hepatitis C positive Elevated LFT DISCHARGE MEDICATIONS: See Medication Reconciliation list. DISCHARGE INSTRUCTIONS: Patient was discharged to [facility] [place]. Follow-up with medical doctor at the facility I have been assigned to dictate discharge summary for this account. I was not involved in the patient's management. Ellie Fowler NP Jan 10, 2019 07:48
== END 2019-01-09 17:45 | DRG 812 ==
LOC: EDBD 19:58 → EMR 21:26 → EDBEDREQ 01-04 10:48 → EDBEDREQDT 01-04 10:48 → EDBEDREQSVC 01-04 10:48 → EDBEDREQTM 01-04 10:48 → 4E 01-04 11:35 → UNDOADMIN 01-04 11:35 → EDBEDREQ 01-04 12:02 → 4E 01-04 14:24
DX: T43.621A Poisoning by amphetamines, accidental (unintentional), initial encounter (principal); G92 Toxic encephalopathy; E46 Unspecified protein-calorie malnutrition; M62.82 Rhabdomyolysis; F31.9 Bipolar disorder, unspecified; F12.129 Cannabis abuse with intoxication, unspecified; Z68.20 Body mass index [BMI] 20.0-20.9, adult; N39.0 Urinary tract infection, site not specified; F15.10 Other stimulant abuse, uncomplicated; D64.9 Anemia, unspecified; F90.9 Attention-deficit hyperactivity disorder, unspecified type; Z59.0 Homelessness; B19.20 Unspecified viral hepatitis C without hepatic coma; R94.5 Abnormal results of liver function studies; R41.0 Disorientation, unspecified
CPT/HCPCS: 36415; 70450; 71045; 76700; 80048; 80053; 80061; 80076; 80307; 80329; 81003; 82140; 82248; 82550; 82607; 82746; 82977; 83735; 84100; 84443; 84550; 85025; 86703; 86705; 86709; 86803; 87340; 93005; 96361; 96374; 99285

== ENCOUNTER 2019-05-20 22:45 | Emergency (ER) | payer MEDICAID ==
[~2019-05-20] VITALS: Ht 177.8 cm; Wt 81.6 kg
[~2019-05-20 22:45] MED LIST: ZYPREXA5 MG ORAL
--- NOTE | 2019-05-20 22:45 | NUR ---
ED Nurse Note: pt brought in by [facility] from [facility] c/c meth use, per EMS report unable to obtain when he took the crystal meth but states that he wanted to go to the hospital. pt currently restless, excessive and fast speech, pt states he has history of traumatic brain injury, asperger's, and autism. will cont monitor.vss.
[2019-05-20 22:50] VITALS: BP 132/90
[2019-05-20] MEDS ORDERED: Haloperidol 5mg/ml Inj IM ONE (23:30)
[2019-05-20] MEDS ORDERED: DiphenhydrAMINE 50mg/ml Inj IM ONE (23:30)
--- NOTE | 2019-05-21 | NUR ---
ED Nurse Note: pt sleeping at this time, vss, resp even and unlabored on RA, no sx resp distress, safety measures in place, will cont monitor.
--- NOTE | 2019-05-21 01:08 | Emergency Room Report ---
History of Present Illness General Chief Complaint: Substance Abuse Source: Patient, EMS Present Illness HPI Is a 23-year-old male with a history of methamphetamine abuse. He also has a history of cerebral palsy and aspirator. He called 911 because he said he used methamphetamine and did feel well in the place to sleep. He denies suicidal thoughts homicidal thought. Denies any other complaint. Nothing made it better. Nothing made it worse. Similar symptom in the past. Allergies: Coded Allergies: UNABLE TO ASSESS (Unverified , 01/03/19) Patient History Past Medical History: see triage record, old chart reviewed Past Surgical History: other Pertinent Family History: none Social History: Denies: smoking Immunizations: other Reviewed Nursing Documentation: PMH: Agreed; PSxH: Agreed Nursing Documentation-PMH Past Medical History: No History, Except For Review of Systems Eye: Denies: eye pain, blurred vision ENT: Denies: ear pain, nose congestion, throat swelling Respiratory: Denies: cough, shortness of breath Cardiovascular: Denies: chest pain, palpitations Gastrointestinal: Denies: abdominal pain, diarrhea, nausea, vomiting Musculoskeletal: Denies: back pain, joint pain Skin: Denies: rash Neurological: Denies: headache, numbness Endocrine: Denies: increased thirst, increased urine Hematologic/Lymphatic: Denies: easy bruising All Other Systems: negative except mentioned in HPI Physical Exam Vital Signs Date Time Temp Pulse Resp B/P (MAP) Pulse Ox O2 Delivery O2 Flow Rate FiO2 05/20/19 22:36 98.4 80 20 132/90 (104) 98 Room Air Vitals unremarkable Sp02 EP Interpretation: reviewed, normal General Appearance: well appearing, no apparent distress, alert Head: normocephalic, atraumatic Eyes: bilateral eye PERRL, bilateral eye EOMI ENT: hearing grossly normal, normal pharynx Neck: full range of motion, supple, no meningismus Respiratory: chest non-tender, lungs clear, normal breath sounds Cardiovascular #1: regular rate, rhythm, no murmur Gastrointestinal: normal bowel sounds, non tender, no mass, no organomegaly, no bruit, non-distended Musculoskeletal: back normal, normal range of motion, gait/station normal Psychiatric: mood/affect normal Medical Decision Making Diagnostic Impression: Primary Impression: Substance abuse ER Course Presents with substance abuse. No evidence of suicidal thoughts homicidal thought. Patient slept through the night here. Will refill his medication for Zyprexa. Will discharge in the morning. Last Vital Signs Date Time Temp Pulse Resp B/P (MAP) Pulse Ox O2 Delivery O2 Flow Rate FiO2 05/20/19 22:36 98.4 80 20 132/90 (104) 98 Room Air Status: improved Disposition: HOME, SELF-CARE Condition: Stable Scripts Olanzapine* (ZYPREXA*) 5 Mg Tablet 5 MG ORAL DAILY, #30 TAB Prov: Lukasz Turcios MD 05/21/19 Referrals: [facility]ERR[facility] (PCP) Patient Instructions: Stimulant Use Disorder-Methamphetamines Additional Instructions: Stop using drugs. Follow-up with rehab within a week. Follow-up with your doctor in a week. Return if symptoms worsen. Lukasz Turcios MD May 21, 2019 01:07
[2019-05-21] MEDS ORDERED: ZYPREXA5 MG ORAL (01:11)
[2019-05-21 06:05] VITALS: BP 128/68
--- NOTE | 2019-05-21 06:05 | NUR ---
ED Nurse Note: Pt cleared to be d/c per ERMD, pt discharge and aftercare instruction w/ medication provided, pt advised to follow up with pcp or return to ed if changes in condition, pt advised to stop substance drugs, pt verbalized understanding, pt states she stays at the [facility], pt given sandwich and juice, pt has weather appropriate clothing, pt declined to be screened for infectious disease nor vaccination at this time. pt given list of clinic and rehab for follow up. pt states he can take bus to go to the [facility]. pt left w/ all belongings. vss. resp even and unlabored on RA. ambulatory w/ steady gait.
== END 2019-05-21 06:05 | disposition home or self-care (01) ==
LOC: EDBD 22:45 → EMR 22:58
DX: F15.10 Other stimulant abuse, uncomplicated (principal); G80.9 Cerebral palsy, unspecified
CPT/HCPCS: 96372; J1200; J1630; Z7502; 99283

== ENCOUNTER 2019-06-24 20:55 | Emergency (ER) | payer MEDICAID ==
[~2019-06-24] VITALS: Ht 182.9 cm; Wt 81.6 kg
[2019-06-24 21:02] VITALS: BP 140/80
[2019-06-24] MEDS ORDERED: NKM (21:03)
[2019-06-24] MEDS ORDERED: LORazepam Inj 2mg/ml 1ml IM ONE ×2 (21:15→21:30)
[2019-06-24] MEDS ORDERED: Haloperidol 5mg/ml Inj IM ONE ×2 (21:15→21:30)
--- NOTE | 2019-06-24 21:18 | Emergency Room Report ---
History of Present Illness General Chief Complaint: Substance Abuse Source: Patient, Medical Record, EMS Present Illness HPI This a 24-year-old male with a history of autism, seizure, methamphetamine abuse. He was brought in by EMS with chief complaint of agitation. He was agitated bystander called 911. He is admitted using methamphetamine. He denies suicidal thoughts homicidal thought. History is limited on this patient because of his agitation. He has been here several times for this. He also has armbands from different hospitals. Allergies: Coded Allergies: No Known Allergies (Unverified , 05/21/19) Patient History Past Medical History: see triage record, old chart reviewed Past Surgical History: other Pertinent Family History: none Social History: Reports: drug use Immunizations: other Reviewed Nursing Documentation: PMH: Agreed; PSxH: Agreed Nursing Documentation-PMH Past Medical History: No History, Except For History Of Psychiatric Problem: Yes - SUBSTANCE ABUSE Review of Systems All Other Systems: limited - Secondary to agitation Physical Exam Vital Signs Date Time Temp Pulse Resp B/P (MAP) Pulse Ox O2 Delivery O2 Flow Rate FiO2 06/24/19 20:59 99.0 120 18 140/80 (100) 99 Room Air Sp02 EP Interpretation: reviewed, normal General Appearance: well appearing, no apparent distress, alert, other - Agitation Head: normocephalic, atraumatic Eyes: bilateral eye PERRL, bilateral eye EOMI ENT: hearing grossly normal, normal pharynx Neck: full range of motion, supple, no meningismus Respiratory: chest non-tender, lungs clear, normal breath sounds Cardiovascular #1: regular rate, rhythm, no murmur Gastrointestinal: normal bowel sounds, non tender, no mass, no organomegaly, no bruit, non-distended Musculoskeletal: back normal, normal range of motion, gait/station normal Psychiatric: mood/affect normal Medical Decision Making Diagnostic Impression: Primary Impression: Methamphetamine abuse Additional Impression: Psychosis Qualified Codes: F23 - Brief psychotic disorder ER Course Patient presents with acute psychosis. Better after Ativan Haldol and Benadryl. He denies suicidal thoughts homicidal thought. No criteria for 5150. Patient slept to the night. Now he is felt better and said he wants to leave. This patient is a chronic risk of self injury due to poor impulse control, limited coping skills, and judgment intermittently impaired by intoxication. I believe that the available clinical evidence to suggest that these characteristics derived primarily from personality disorder and are likely very stable over time. Hospitalization would likely attenuate risk of self-harm only during halfway period, without lasting risk reduction. Serious self-harm , while possible, would likely be inadvertent, and because of impulsivity, and foreseeable. For these reasons, I do not believe hospitalization would provide meaningful reduction in risk of self-harm. Last Vital Signs Date Time Temp Pulse Resp B/P (MAP) Pulse Ox O2 Delivery O2 Flow Rate FiO2 06/24/19 20:59 99.0 120 18 140/80 (100) 99 Room Air Status: improved Disposition: HOME, SELF-CARE Condition: Stable Additional Instructions: Abstain from drugs and alcohol. Go to rehab. Follow-up with your doctor in 7 days. Return if worse. Lukasz Turcios MD Jun 24, 2019 21:18
[2019-06-24] MEDS ORDERED: Haloperidol 5mg/ml Inj ONE (21:21)
[2019-06-24] MEDS ORDERED: DiphenhydrAMINE 50mg/ml Inj ONE (21:21)
[2019-06-24] MEDS ORDERED: LORazepam Inj 2mg/ml 1ml ONE (21:21)
[2019-06-24] MEDS ORDERED: DiphenhydrAMINE 50mg/ml Inj IM ONE (21:30)
[2019-06-24 23:52] VITALS: BP 130/86
[2019-06-25 01:52] VITALS: BP 132/72
[2019-06-25 05:35] VITALS: BP 123/69
== END 2019-06-25 05:35 | disposition home or self-care (01) ==
LOC: EDBD 20:55 → EMR 20:59
DX: F15.10 Other stimulant abuse, uncomplicated (principal); F23 Brief psychotic disorder
CPT/HCPCS: 96372; J1200; J1630; Z7502; 99283